=== PATIENT | male | born 1960 | race Caucasian/White ===

== ENCOUNTER → 2017-06-05 07:27 | Outpatient (CLI) | payer SELFPAY ==
--- NOTE | 2017-06-05 07:56 | CT_ITS ---
STUDY: CT ABDOMEN AND PELVIS WITH CONTRAST REASON FOR EXAM: Male, 57 years old. Follow-up for colon cancer. RADIATION DOSAGE (If Supplied By Facility): CTDIvol = ( 20.01 ) mGy, DLP = ( 1285.75 ) mGycm TECHNIQUE: Transaxial images were obtained from the dome of the diaphragm to the symphysis pubis with oral contrast. 100ML ml of Isovue 300 contrast was administered. Sagittal and coronal images were reconstructed. Individualized dose optimization techniques were used for this CT. COMPARISON: Comparison is made with prior study dated June 05, 2016. FINDINGS: Stable 4 mm noncalcified nodule in the peripheral lateral aspect of the right lower lobe. This is seen on axial image #2. The visualized portions of the heart are within normal limits. 1 cm cyst is seen in the left lobe liver. Stable 1.3 cm cyst adjacent to the gallbladder fossa. Stable solitary gallstone along the dependent portion of the gallbladder. Normal spleen. Normal pancreas. Normal bilateral adrenal glands. Normal right kidney. Normal left kidney. Normal visualized stomach. Normal small intestine. Normal colon. The appendix is visualized and appears normal. There is scattered atherosclerotic calcification of the abdominal aorta, without a demonstrated aneurysm. Normal inferior vena cava. Normal retroperitoneum. Normal urinary bladder. There is a small umbilical hernia containing fat. Small bilateral inguinal hernias containing fat. There are mild degenerative changes of the visualized lumbar spine. CT/Abdomen/Pelvis WITH Contrast IMPRESSION: Stable examination. Electronically Signed: Severino Dia MD at 15:30 EDT Tel [phone], Service support ,
[2017-06-05 08:22] LABS: Absolute Neutrophil Count 2.7 X10^3/uL (2.0-7.7); Basophil# 0.03 X10^3/uL; Basophil% 0.7 % (0-1); Eosinophil# 0.12 X10^3/uL; Eosinophils% 2.7 % (0-5); Hematocrit 41.4 % (40-54); Hemoglobin 14.3 g/dl (13.0-16.5); Mean Corp Hgb Conc 34.5 g/gl (32-36); Mean Corpuscular Hgb 33.4 pg (27.0-32.0); Mean Corpuscular Volume 96.7 fL (80-94); Mean Platelet Vol. 9.5 fl (6.2-12.0); Monocyte# 0.43 X10^3/uL; Monocyte% 9.8 % (0-10); Neutrophil # 2.71 X10^3/uL (2.7-7.7); Neutrophil % 61.6 % (47-70); Platelet Count 262 K/mm3 (150-450); RBC Distribution Width CV 12.1 % (11.6-14.6); RBC Distribution Width SD 41.9 fl (35.1-43.9); Red Blood Count 4.28 M/mm3 (4.6-6.2); White Blood Count 4.4 K/mm3 (4.4-11.0)
[2017-06-05 08:26] LABS: POSITIVE COUNT NO; POSITIVE DIFFERENTIAL NO; POSITIVE MORPHOLOGY NO
[2017-06-05 08:35] LABS: ALB/GLOB Ratio 1.1 RATIO (0.9-2.4); AST(SGOT) 12 U/L (15-37); Alanine Aminotransfer ALT/SGPT 26 U/L (16-61); Albumin, Serum 3.7 g/dL (3.2-5.0); Alkaline Phosphatase 48 U/L (45-117); Anion Gap 6 (5-15); BUN 16 mg/dL (7-18); BUN/Creat Ratio 17.4 RATIO (10-20); Calcium,Total 8.4 mg/dL (8.5-10.1); Chloride 104 mmol/L (98-107); Cholesterol 191 mg/dL (200); Creatinine, Serum 0.92 mg/dL (0.70-1.30); EST Glomerular Filtration Rate 90 mL/min (>60); Est Glom Filt Rate - Afr Amer 108 mL/min (>60); Globulin 3.5 g/dL (2.2-4.2); Glucose 97 mg/dL (74-106); High Density Lipoprotein 50 mg/dL; Potassium 4.5 mmol/L (3.5-5.1); Protein, Total 7.2 g/dL (6.4-8.2); Sodium Level 140 mmol/L (136-145); Triglycerides 116 mg/dL; Very Low Density Lipoprotein 23 mg/dL (5-40)
[2017-06-05 15:39] LABS: Xtra Tube EP Lab EXTRA TUBE
[2017-06-06 12:47] LABS: Carcinoembryonic Antigen 1.5 ng/mL (0.0-4.7)
== END ==
PROVIDERS: Family Provider Family Medicine; PCP Family Medicine; Visit Provider Internal Medicine Medical Oncology
DX: C18.9 Malignant neoplasm of colon, unspecified (principal); I10 Essential (primary) hypertension
CPT/HCPCS: 36415; 74177; 80053; 80061; 82378; 85025; Q9967

== ENCOUNTER → 2018-02-18 08:58 | Outpatient (CLI) | payer OTHER, SELFPAY ==
[2018-02-18 12:07] LABS: Absolute Lymphocyte Count 1.24 X10^3/ul (0.83-4.51); Absolute Neutrophil Count 3.1 X10^3/uL (2.0-7.7); Basophil# 0.01 X10^3/uL; Basophil% 0.2 % (0-1); Eosinophil# 0.13 X10^3/uL; Eosinophils% 2.7 % (0-5); Hematocrit 41.1 % (40-54); Hemoglobin 14.1 g/dl (13.0-16.5); Lymphocyte # 1.24 X10^3/ul (4.0); Lymphocyte % 25.4 % (19-41); Mean Corp Hgb Conc 34.3 g/gl (32-36); Mean Corpuscular Hgb 33.2 pg (27.0-32.0); Mean Corpuscular Volume 96.7 fL (80-94); Mean Platelet Vol. 10.1 fl (6.2-12.0); Monocyte# 0.42 X10^3/uL; Monocyte% 8.6 % (0-10); Neutrophil # 3.07 X10^3/uL (2.7-7.7); Neutrophil % 62.9 % (47-70); Platelet Count 243 K/mm3 (150-450); RBC Distribution Width CV 12.3 % (11.6-14.6); RBC Distribution Width SD 42.6 fl (35.1-43.9); Red Blood Count 4.25 M/mm3 (4.6-6.2); White Blood Count 4.9 K/mm3 (4.4-11.0)
[2018-02-18 12:08] LABS: POSITIVE COUNT NO; POSITIVE DIFFERENTIAL NO; POSITIVE MORPHOLOGY NO
[2018-02-18 13:02] LABS: ALB/GLOB Ratio 1.2 RATIO (0.9-2.4); AST(SGOT) 20 U/L (15-37); Alanine Aminotransfer ALT/SGPT 30 U/L (16-61); Albumin, Serum 3.8 g/dL (3.2-5.0); Alkaline Phosphatase 45 U/L (45-117); Anion Gap 9 (5-15); BUN 21 mg/dL (7-18); BUN/Creat Ratio 22.4 RATIO (10-20); Calcium,Total 8.9 mg/dL (8.5-10.1); Chloride 105 mmol/L (98-107); Cholesterol 186 mg/dL (200); Creatinine, Serum 0.94 mg/dL (0.70-1.30); EST Glomerular Filtration Rate 87 mL/min (>60); Est Glom Filt Rate - Afr Amer 106 mL/min (>60); Globulin 3.3 g/dL (2.2-4.2); Glucose 88 mg/dL (74-106); High Density Lipoprotein 50 mg/dL; Potassium 4.2 mmol/L (3.5-5.1); Protein, Total 7.1 g/dL (6.4-8.2); Sodium Level 139 mmol/L (136-145); Triglycerides 73 mg/dL; Very Low Density Lipoprotein 15 mg/dL (5-40)
[2018-02-19 11:57] LABS: Carcinoembryonic Antigen 1.4 ng/mL (0.0-4.7)
== END ==
PROVIDERS: Family Provider Family Medicine; PCP Family Medicine; Visit Provider Family Medicine
DX: Z00.00 Encounter for general adult medical examination without abnormal findings (principal); I10 Essential (primary) hypertension; Z85.038 Personal history of other malignant neoplasm of large intestine
CPT/HCPCS: 36415; 80053; 80061; 82378; 85025

== ENCOUNTER → 2018-04-11 13:41 | Outpatient (CLI) | payer OTHER, SELFPAY ==
[2018-04-11 16:09] LABS: ALB/GLOB Ratio 1.1 RATIO (0.9-2.4); AST(SGOT) 13 U/L (15-37); Alanine Aminotransfer ALT/SGPT 29 U/L (16-61); Albumin, Serum 3.8 g/dL (3.2-5.0); Alkaline Phosphatase 47 U/L (45-117); Anion Gap 10 (5-15); BUN 14 mg/dL (7-18); BUN/Creat Ratio 15.9 RATIO (10-20); Calcium,Total 8.9 mg/dL (8.5-10.1); Chloride 108 mmol/L (98-107); Creatinine, Serum 0.88 mg/dL (0.70-1.30); EST Glomerular Filtration Rate 94 mL/min (>60); Est Glom Filt Rate - Afr Amer 113 mL/min (>60); Globulin 3.4 g/dL (2.2-4.2); Glucose 90 mg/dL (74-106); Potassium 3.7 mmol/L (3.5-5.1); Protein, Total 7.2 g/dL (6.4-8.2); Sodium Level 142 mmol/L (136-145); Thyroid Stim Hormone (TSH) 0.74 uIU/mL (0.358-3.74)
[2018-04-11 16:12] LABS: Absolute Lymphocyte Count 1.28 X10^3/ul (0.83-4.51); Absolute Neutrophil Count 3.6 X10^3/uL (2.0-7.7); Basophil# 0.01 X10^3/uL; Basophil% 0.2 % (0-1); Eosinophils% 1.8 % (0-5); Hematocrit 41.5 % (40-54); Hemoglobin 14.3 g/dl (13.0-16.5); Lymphocyte # 1.28 X10^3/ul (4.0); Lymphocyte % 23.1 % (19-41); Mean Corp Hgb Conc 34.5 g/gl (32-36); Mean Corpuscular Hgb 33.6 pg (27.0-32.0); Mean Corpuscular Volume 97.4 fL (80-94); Mean Platelet Vol. 10.1 fl (6.2-12.0); Monocyte# 0.51 X10^3/uL; Monocyte% 9.2 % (0-10); Neutrophil # 3.64 X10^3/uL (2.7-7.7); Neutrophil % 65.5 % (47-70); Platelet Count 295 K/mm3 (150-450); RBC Distribution Width CV 12.4 % (11.6-14.6); RBC Distribution Width SD 43.4 fl (35.1-43.9); Red Blood Count 4.26 M/mm3 (4.6-6.2); White Blood Count 5.6 K/mm3 (4.4-11.0)
[2018-04-11 16:13] LABS: POSITIVE COUNT NO; POSITIVE DIFFERENTIAL NO; POSITIVE MORPHOLOGY NO
== END ==
PROVIDERS: Family Provider Family Medicine; PCP Family Medicine; Visit Provider Family Medicine
DX: R53.83 Other fatigue (principal); I95.9 Hypotension, unspecified; R51 Headache
CPT/HCPCS: 36415; 80053; 82533; 84443; 85025

== ENCOUNTER → 2018-04-18 16:10 | Outpatient (CLI) | payer OTHER, SELFPAY ==
--- NOTE | 2018-04-18 10:25 | COLBX_PTH ---
PATIENT: BETTY MOONEY LOC: [facility] U#:[id number] AGE/SX: 64/M ROOM: RE04/18/[address]: Dr. Zach Yañez MD : 1960 BED: DIS: SPEC #: [id number] RECD: 04/18/18 15:59 STATUS: LAURA SHALONDA #: [id number] XIN: 04/18/18 10:[address]: Zach Yañez DEPT: SURGICAL PATHOLOGY RECD BY: Abdifatah English ENTERED: 04/21/18 09:40 SP TYPE: COLON BX OTHR DR: Dr. Joss Tristan, [facility] Tissues: Sigmoid colon biopsy Procedures: Surgery Specimen Level IV HEADER OPERATION: Colonoscopy with polyp PRE-OP DIAGNOSIS: History of colon cancer TISSUE SUBMITTED: Sigmoid polyp, rule out adenoma, at 35 cm MICROSCOPIC DIAGNOSIS Sigmoid colon polyp at 35 cm, biopsy: Fragments of tubular adenoma. AM:montrell 04/22/18 MICROSCOPIC DESCRIPTION Slides are reviewed. GROSS DESCRIPTION Received in fixative is one container labeled with the patient's name and designated sigmoid polyp. The specimen consists of multiple irregular fragments of light reyes soft tissue that in aggregate measure 2 x 0.7 x 0.1 cm. The specimen is totally submitted in one cassette. / AM:montrell 04/21/18 TC:5 CPT: 08449
== END ==
PROVIDERS: Family Provider Family Medicine; PCP Family Medicine; Referring Provider Internal Medicine Gastroenterology; Visit Provider Internal Medicine Gastroenterology
DX: Z85.038 Personal history of other malignant neoplasm of large intestine (principal)
CPT/HCPCS: 88305

== ENCOUNTER → 2018-06-06 06:11 | Outpatient (CLI) | payer OTHER, SELFPAY ==
--- NOTE | 2018-06-06 06:17 | CT_ITS ---
STUDY: CT ABDOMEN AND PELVIS WITH CONTRAST REASON FOR EXAM: Male, 58 years old. COLON CA-5 YEAR FOLLOW UP TUMOR REMOVED FROM RECTUM. RADIATION DOSAGE (If Supplied By Facility): CTDIvol = ( 13.1 ) mGy, DLP = ( 1088.27 ) mGycm TECHNIQUE: Transaxial images were obtained from the dome of the diaphragm to the symphysis pubis without oral contrast. Isovue 300 100CC IV/Oral was administered. Sagittal and coronal images were reconstructed. Individualized dose optimization techniques were used for this CT. COMPARISON: 06/05/2017 FINDINGS: The visualized lung bases are unremarkable. The visualized portions of the heart are within normal limits. Hypoattenuation lesions are seen in the liver largest measures 1.5 cm are consistent with benign cysts. There is a solitary gallstone. Normal spleen. Normal pancreas. Normal bilateral adrenal glands. There is a cyst in the lower pole of the right kidney measures 1 cm. Normal left kidney. Normal visualized stomach. Normal small intestine. There are multiple colonic diverticula consistent with diverticulosis. The appendix is visualized and appears normal. Normal abdominal aorta. Normal inferior vena cava. Normal retroperitoneum. Normal urinary bladder. Normal abdominal wall. There are diffuse degenerative changes of the visualized lumbar spine. CT/Abdomen/Pelvis WITH Contrast IMPRESSION: Cholelithiasis. There is no evidence of metastatic lesions in the abdomen or the pelvis. Electronically Signed: Alyssia Alfonso, at 12:11 EDT Tel , Service support ,
[2018-06-06 06:30] LABS: Absolute Neutrophil Count 1.7 X10^3/uL (2.0-7.7); Basophil# 0.03 X10^3/uL; Basophil% 0.8 % (0-1); Eosinophil# 0.23 X10^3/uL; Eosinophils% 5.9 % (0-5); Hematocrit 42.4 % (40-54); Hemoglobin 14.7 g/dl (13.0-16.5); Lymphocyte % 40.7 % (19-41); Mean Corp Hgb Conc 34.7 g/gl (32-36); Mean Corpuscular Hgb 33.5 pg (27.0-32.0); Mean Corpuscular Volume 96.6 fL (80-94); Mean Platelet Vol. 9.2 fl (6.2-12.0); Monocyte# 0.37 X10^3/uL; Monocyte% 9.4 % (0-10); Neutrophil % 43.2 % (47-70); POSITIVE COUNT NO; POSITIVE DIFFERENTIAL NO; POSITIVE MORPHOLOGY NO; Platelet Count 245 K/mm3 (150-450); RBC Distribution Width CV 12.4 % (11.6-14.6); RBC Distribution Width SD 43.8 fl (35.1-43.9); Red Blood Count 4.39 M/mm3 (4.6-6.2); White Blood Count 3.9 K/mm3 (4.4-11.0)
[2018-06-06 06:45] LABS: ALB/GLOB Ratio 1.1 RATIO (0.9-2.4); AST(SGOT) 17 U/L (15-37); Alanine Aminotransfer ALT/SGPT 25 U/L (16-61); Albumin, Serum 3.8 g/dL (3.2-5.0); Alkaline Phosphatase 54 U/L (45-117); Anion Gap 6 (5-15); BUN 15 mg/dL (7-18); BUN/Creat Ratio 15.1 RATIO (10-20); Calcium,Total 8.7 mg/dL (8.5-10.1); Chloride 105 mmol/L (98-107); Creatinine, Serum 0.99 mg/dL (0.70-1.30); EST Glomerular Filtration Rate 82 mL/min (>60); Est Glom Filt Rate - Afr Amer 99 mL/min (>60); Globulin 3.6 g/dL (2.2-4.2); Glucose 104 mg/dL (74-106); Potassium 4.6 mmol/L (3.5-5.1); Protein, Total 7.4 g/dL (6.4-8.2); Sodium Level 139 mmol/L (136-145)
[2018-06-07 17:14] LABS: Carcinoembryonic Antigen 1.4 ng/mL (0.0-4.7)
== END ==
PROVIDERS: Family Provider Family Medicine; PCP Family Medicine; Referring Provider Internal Medicine Medical Oncology; Visit Provider Internal Medicine Medical Oncology
DX: C18.9 Malignant neoplasm of colon, unspecified (principal)
CPT/HCPCS: 36415; 74177; 80053; 82378; 85025; Q9967

== ENCOUNTER → 2019-01-22 06:25 | Outpatient (CLI) | payer OTHER, SELFPAY ==
[2018-06-10 15:11] VITALS: BMI 35.9
--- NOTE | 2019-01-22 06:46 | MRI_ITS ---
STUDY: MRI LEFT KNEE REASON FOR EXAM: Medial knee pain, injury one month ago. TECHNIQUE: Standardized fat and water weighted pulse sequences were obtained in all 3 orthogonal planes. COMPARISON: None. FINDINGS: There is a horizontal flap tear of the inferior articular surface of the posterior horn of the medial meniscus (proton density sagittal images 10-12) with a small displaced fragment in the posterior aspect of the medial gutter (T2 coronal images 16-18). Normal hyaline cartilage of the medial femorotibial compartment. Normal medial femoral condyle and tibial plateau. There is a mild sprain of the superficial fibers of the medial collateral ligament (T2 coronal image 20). Normal distal semimembranosus, gracilis and semitendinosus tendons. Normal lateral meniscus. Normal hyaline cartilage of the lateral femorotibial compartment. Normal lateral femoral condyle and tibial plateau. Normal proximal tibiofibular articulation. Normal lateral collateral (fibular) ligament. Normal popliteus tendon. Normal biceps femoris tendon. Normal anterior cruciate ligament (ACL). Normal posterior cruciate ligament (PCL). Normal congruent patellofemoral articulation. Normal hyaline cartilage of the patellofemoral compartment. Normal medial and lateral patellar retinaculum. Normal visualized quadriceps tendon. Normal patellar tendon. Normal Hoffa's fat pad. There is a moderate sized joint effusion. There is a thin medial patellar plica. The soft tissues are unremarkable. The otherwise visualized osseous structures are unremarkable. MRI/Lower Ext Joint Only (Routine) IMPRESSION: Medial meniscal tear. Mild sprain of the medial collateral ligament. Joint effusion. Electronically Signed: Sky Garza MD at 8:34 EST Tel , Service support ,
== END ==
PROVIDERS: Family Provider Family Medicine; PCP Family Medicine
DX: S83.242A Other tear of medial meniscus, current injury, left knee, initial encounter (principal); X58.XXXA Exposure to other specified factors, initial encounter
CPT/HCPCS: 73721

== ENCOUNTER → 2019-06-03 06:45 | Outpatient (CLI) | payer SELFPAY ==
[2018-06-10 15:11] VITALS: BMI 35.9
--- NOTE | 2019-06-03 07:00 | CT_ITS ---
STUDY: CT ABDOMEN AND PELVIS WITH CONTRAST REASON FOR EXAM: Male, 59 years old. PT STATED F/U SURVEILLANCE OF COLON CA RADIATION DOSAGE (If Supplied By Facility): CTDIvol = ( 21.51 ) mGy, DLP = ( 1494.30 ) mGycm TECHNIQUE: Transaxial images were obtained from the dome of the diaphragm to the symphysis pubis with oral contrast. Oral and amp; IV Readi-CAT and amp; 100mL Isovue-300 was administered. Sagittal and coronal images were reconstructed. Individualized dose optimization techniques were used for this CT. COMPARISON: Comparison is made with prior study dated June 06, 2018. FINDINGS: Stable mild degree of increasing markings in the lingular segment of the left upper lobe suggestive of a mild degree of scarring. The visualized portions of the heart are within normal limits. There is decreased attenuation of the liver consistent with steatosis. Stable 1 cm cyst in the left lobe of the liver. Solitary tiny gallstone along the dependent portion of the gallbladder lumen. This is unchanged. Normal spleen. Normal pancreas. Normal bilateral adrenal glands. Normal right kidney. Normal left kidney. Normal visualized stomach. Normal small intestine. Normal colon. The appendix is visualized and appears normal. There is scattered atherosclerotic calcification of the abdominal aorta, without a demonstrated aneurysm. Normal inferior vena cava. Normal retroperitoneum. Normal urinary bladder. Small bilateral inguinal lymph nodes which appear to be benign. There is evidence of prior bilateral vasectomies. There is a small umbilical hernia containing fat. Small bilateral inguinal hernias containing fat. There are mild degenerative changes of the visualized lumbar spine. CT/Abdomen/Pelvis WITH Contrast IMPRESSION: Tiny position of the liver. Stable cyst in the left lobe. There is no evidence of metastatic disease. Stable examination. Electronically Signed: Severino Dia, at 9:25 EDT , Service support ,
[2019-06-03 07:09] LABS: Absolute Lymphocyte Count 1.44 X10^3/uL (0.83-4.51); Absolute Neutrophil Count 2.7 X10^3/uL (2.0-7.7); Basophil# 0.04 X10^3/uL; Basophil% 0.8 % (0-1); Eosinophil# 0.23 X10^3/uL; Eosinophils% 4.7 % (0-5); Hemoglobin 14.3 g/dL (13.0-16.5); Lymphocyte # 1.44 X10^3/ul (4.0); Lymphocyte % 29.6 % (19-41); Mean Corp Hgb Conc 34.9 g/dL (32-36); Mean Corpuscular Volume 94.7 fL (80-94); Mean Platelet Vol. 9.3 fl (6.2-12.0); Monocyte# 0.44 X10^3/uL; Monocyte% 9.1 % (0-10); NRBC Flagged by Analyzer 0 % (0-5); Neutrophil % 55.6 % (47-70); Platelet Count 236 K/mm3 (150-450); RBC Distribution Width CV 11.8 % (11.6-14.6); RBC Distribution Width SD 40.9 fl (35.1-43.9); Red Blood Count 4.33 M/mm3 (4.6-6.2); White Blood Count 4.9 K/mm3 (4.4-11.0)
[2019-06-03 07:38] LABS: ALB/GLOB Ratio 1.2 RATIO (0.9-2.4); AST(SGOT) 17 U/L (15-37); Alanine Aminotransfer ALT/SGPT 27 U/L (16-61); Albumin, Serum 3.8 g/dL (3.2-5.0); Alkaline Phosphatase 45 U/L (45-117); Anion Gap 5 (5-15); BUN 17 mg/dL (7-18); BUN/Creat Ratio 17.2 RATIO (10-20); Calcium,Total 8.7 mg/dL (8.5-10.1); Chloride 106 mmol/L (98-107); Creatinine, Serum 0.99 mg/dL (0.70-1.30); EST Glomerular Filtration Rate 82 mL/min (>60); Est Glom Filt Rate - Afr Amer 99 mL/min (>60); Globulin 3.3 g/dL (2.2-4.2); Glucose 96 mg/dL (74-106); PSA,Total - Annual Screen 0.22 ng/mL (0.00-4.00); Potassium 4.1 mmol/L (3.5-5.1); Protein, Total 7.1 g/dL (6.4-8.2); Sodium Level 138 mmol/L (136-145)
[2019-06-03 14:52] LABS: Xtra Tube EP Lab EXTRA TUBE
[2019-06-04 11:30] LABS: Carcinoembryonic Antigen 1.3 ng/mL (0.0-4.7)
== END ==
PROVIDERS: Family Provider Family Medicine; PCP Family Medicine; Referring Provider Internal Medicine Medical Oncology; Visit Provider Internal Medicine Medical Oncology
DX: I10 Essential (primary) hypertension (principal); Z85.038 Personal history of other malignant neoplasm of large intestine; Z12.5 Encounter for screening for malignant neoplasm of prostate
CPT/HCPCS: 36415; 74177; 80053; 82378; 84153; 85025; Q9967; G0103

== ENCOUNTER → 2020-07-20 07:21 | Outpatient (CLI) | payer OTHER, SELFPAY ==
[2019-08-04 14:50] VITALS: BMI 35.7
[2020-07-20 07:55] LABS: Absolute Lymphocyte Count 1.23 X10^3/uL (0.83-4.51); Absolute Neutrophil Count 3.4 X10^3/uL (2.0-7.7); Basophil# 0.04 X10^3/uL; Basophil% 0.7 % (0-1); Eosinophil# 0.35 X10^3/uL; Eosinophils% 6.3 % (0-5); Hemoglobin 14.7 g/dL (13.0-16.5); Lymphocyte # 1.23 X10^3/ul (0.83-4.51); Mean Corp Hgb Conc 34.2 g/dL (32-36); Mean Corpuscular Hgb 33.2 pg (27.0-32.0); Mean Corpuscular Volume 97.1 fL (80-94); Mean Platelet Vol. 9.4 fl (6.2-12.0); Monocyte# 0.52 X10^3/uL; Monocyte% 9.3 % (0-10); NRBC Flagged by Analyzer 0 % (0-5); Neutrophil # 3.43 X10^3/uL (2.7-7.7); Neutrophil % 61.5 % (47-70); Platelet Count 281 K/mm3 (150-450); RBC Distribution Width CV 11.8 % (11.6-14.6); RBC Distribution Width SD 42.5 fl (35.1-43.9); Red Blood Count 4.43 M/mm3 (4.6-6.2); White Blood Count 5.6 K/mm3 (4.4-11.0)
[2020-07-20 08:22] LABS: AST(SGOT) 16 U/L (15-37); Alanine Aminotransfer ALT/SGPT 30 U/L (16-61); Albumin, Serum 3.7 g/dL (3.2-5.0); Alkaline Phosphatase 53 U/L (45-117); Anion Gap 5 (5-15); BUN 19 mg/dL (7-18); BUN/Creat Ratio 19.2 RATIO (10-20); Calcium,Total 8.9 mg/dL (8.5-10.1); Chloride 105 mmol/L (98-107); Cholesterol 232 mg/dL (200); Creatinine, Serum 0.99 mg/dL (0.70-1.30); EST Glomerular Filtration Rate 82 mL/min (>60); Est Glom Filt Rate - Afr Amer 99 mL/min (>60); Globulin 3.6 g/dL (2.2-4.2); Glucose 108 mg/dL (74-106); High Density Lipoprotein 53 mg/dL; LDH 172 U/L (87-241); Potassium 4.4 mmol/L (3.5-5.1); Protein, Total 7.3 g/dL (6.4-8.2); Sodium Level 139 mmol/L (136-145); Triglycerides 139 mg/dL; Very Low Density Lipoprotein 28 mg/dL (5-40)
[2020-07-21 09:25] LABS: Carcinoembryonic Antigen 1.4 ng/mL (0.0-4.7)
== END ==
PROVIDERS: Internal Medicine Medical Oncology; PCP Family Medicine; Referring Provider Family Medicine; Visit Provider Family Medicine
DX: Z00.00 Encounter for general adult medical examination without abnormal findings (principal); Z85.038 Personal history of other malignant neoplasm of large intestine
CPT/HCPCS: 36415; 80053; 80061; 82378; 83615; 85025

== ENCOUNTER → 2021-07-26 | Outpatient (CLI) | payer OTHER, SELFPAY ==
[2021-07-26 07:32] LABS: Absolute Lymphocyte Count 1.32 X10^3/uL (0.83-4.51); Basophil# 0.03 X10^3/uL; Basophil% 0.6 % (0-1); Eosinophil# 0.22 X10^3/uL; Eosinophils% 4.4 % (0-5); Hematocrit 39.7 % (40-54); Hemoglobin 13.7 g/dL (13.0-16.5); Lymphocyte # 1.32 X10^3/ul (0.83-4.51); Lymphocyte % 26.2 % (19-41); Mean Corp Hgb Conc 34.5 g/dL (32-36); Mean Corpuscular Hgb 33.5 pg (27.0-32.0); Mean Corpuscular Volume 97.1 fL (80-94); Mean Platelet Vol. 9.7 fl (6.2-12.0); Monocyte# 0.46 X10^3/uL; Monocyte% 9.1 % (0-10); NRBC Flagged by Analyzer 0 % (0-5); Neutrophil # 2.99 X10^3/uL (2.7-7.7); Neutrophil % 59.5 % (47-70); Platelet Count 261 K/mm3 (150-450); RBC Distribution Width CV 12.1 % (11.6-14.6); RBC Distribution Width SD 43.3 fl (35.1-43.9); Red Blood Count 4.09 M/mm3 (4.6-6.2)
[2021-07-26 08:05] LABS: ALB/GLOB Ratio 1.1 RATIO (0.9-2.4); AST(SGOT) 15 U/L (15-37); Alanine Aminotransfer ALT/SGPT 23 U/L (16-61); Albumin, Serum 3.7 g/dL (3.2-5.0); Alkaline Phosphatase 46 U/L (45-117); Anion Gap 4 (5-15); BUN 18 mg/dL (7-18); BUN/Creat Ratio 19.1 RATIO (10-20); Calcium,Total 8.9 mg/dL (8.5-10.1); Chloride 105 mmol/L (98-107); Cholesterol 190 mg/dL (200); Creatinine, Serum 0.94 mg/dL (0.70-1.30); EST Glomerular Filtration Rate 86 mL/min (>60); Est Glom Filt Rate - Afr Amer 104 mL/min (>60); Globulin 3.5 g/dL (2.2-4.2); Glucose 104 mg/dL (74-106); High Density Lipoprotein 43 mg/dL; LDH 178 U/L (87-241); PSA,Total - Annual Screen 0.16 ng/mL (0.00-4.00); Potassium 4.3 mmol/L (3.5-5.1); Protein, Total 7.2 g/dL (6.4-8.2); Sodium Level 139 mmol/L (136-145); Triglycerides 114 mg/dL; Very Low Density Lipoprotein 23 mg/dL (5-40)
[2021-07-26 15:15] LABS: Xtra Tube EP Lab EXTRA TUBE
== END | disposition home or self-care (01) ==
LOC: LAB 07:10
PROVIDERS: Internal Medicine Medical Oncology; PCP Family Medicine; Referring Provider Family Medicine; Visit Provider Family Medicine
DX: Z00.00 Encounter for general adult medical examination without abnormal findings (principal); Z12.5 Encounter for screening for malignant neoplasm of prostate
CPT/HCPCS: 36415; 80053; 80061; 83615; 84153; 85025; G0103

== ENCOUNTER → 2022-08-23 | Outpatient (CLI) | payer OTHER, SELFPAY ==
[2022-08-23 18:11] LABS: Vitamin B12 370 pg/mL (211-911)
[2022-08-23 18:16] LABS: T4 Free Direct 0.82 ng/dL (0.76-1.46)
== END | disposition home or self-care (01) ==
LOC: BFHLAB 14:38
PROVIDERS: PCP Family Medicine; Referring Provider Family Medicine; Visit Provider Family Medicine
DX: R53.83 Other fatigue (principal)
CPT/HCPCS: 36415; 82607; 84439; 84443

== ENCOUNTER → 2023-07-24 | Outpatient (CLI) | payer OTHER, SELFPAY ==
[2023-07-24 09:44] LABS: Absolute Lymphocyte Count 1.25 X10^3/uL (0.83-4.51); Absolute Neutrophil Count 3.1 X10^3/uL (2.0-7.7); Basophil# 0.04 X10^3/uL; Basophil% 0.8 % (0-1); Eosinophil# 0.18 X10^3/uL; Eosinophils% 3.6 % (0-5); Hematocrit 41.9 % (40-54); Hemoglobin 14.3 g/dL (13.0-16.5); Lymphocyte # 1.25 X10^3/ul (0.83-4.51); Lymphocyte % 25.2 % (19-41); Mean Corp Hgb Conc 34.1 g/dL (32-36); Mean Corpuscular Hgb 32.8 pg (27.0-32.0); Mean Corpuscular Volume 96.1 fL (80-94); Mean Platelet Vol. 10.2 fl (6.2-12.0); Monocyte# 0.42 X10^3/uL; Monocyte% 8.5 % (0-10); NRBC Flagged by Analyzer 0 % (0-5); Neutrophil # 3.05 X10^3/uL (2.7-7.7); Neutrophil % 61.5 % (47-70); Platelet Count 264 K/mm3 (150-450); RBC Distribution Width CV 12.1 % (11.6-14.6); RBC Distribution Width SD 42.5 fl (35.1-43.9); Red Blood Count 4.36 M/mm3 (4.6-6.2)
[2023-07-24 10:18] LABS: ALB/GLOB Ratio 1.1 RATIO (0.9-2.4); AST(SGOT) 18 U/L (15-37); Alanine Aminotransfer ALT/SGPT 30 U/L (16-61); Albumin, Serum 3.9 g/dL (3.2-5.0); Alkaline Phosphatase 44 U/L (45-117); Anion Gap 5 (5-15); BUN 22 mg/dL (7-18); BUN/Creat Ratio 24.8 RATIO (10-20); Calcium,Total 9.4 mg/dL (8.5-10.1); Chloride 106 mmol/L (98-107); Cholesterol 207 mg/dL (200); Creatinine, Serum 0.89 mg/dL (0.70-1.30); EST Glomerular Filtration Rate 92 mL/min (>60); Est Glom Filt Rate - Afr Amer 111 mL/min (>60); Globulin 3.7 g/dL (2.2-4.2); Glucose 101 mg/dL (74-106); High Density Lipoprotein 48 mg/dL; LDH 179 U/L (87-241); PSA,Total - Annual Screen 0.23 ng/mL (0.00-4.00); Potassium 4.4 mmol/L (3.5-5.1); Protein, Total 7.6 g/dL (6.4-8.2); Sodium Level 137 mmol/L (136-145); Triglycerides 95 mg/dL; Very Low Density Lipoprotein 19 mg/dL (5-40)
[2023-07-25 04:07] LABS: Carcinoembryonic Antigen 1.1 ng/mL (0.0-4.7)
== END | disposition home or self-care (01) ==
LOC: LAB 08:34
PROVIDERS: Internal Medicine Medical Oncology; PCP Family Medicine; Referring Provider Family Medicine; Visit Provider Family Medicine
DX: I10 Essential (primary) hypertension (principal); Z12.5 Encounter for screening for malignant neoplasm of prostate; Z85.038 Personal history of other malignant neoplasm of large intestine
CPT/HCPCS: 36415; 80053; 80061; 82378; 83615; 84153; 85025; G0103

== ENCOUNTER → 2024-07-22 | Outpatient (CLI) | payer OTHER, SELFPAY ==
[2024-07-22 09:35] LABS: Absolute Lymphocyte Count 1.28 X10^3/uL (0.83-4.51); Absolute Neutrophil Count 2.3 X10^3/uL (2.0-7.7); Basophil# 0.03 X10^3/uL; Basophil% 0.7 % (0-1); Eosinophil# 0.28 X10^3/uL; Eosinophils% 6.5 % (0-5); Hematocrit 39.5 % (40-54); Lymphocyte # 1.28 X10^3/ul (0.83-4.51); Lymphocyte % 29.7 % (19-41); Mean Corp Hgb Conc 35.4 g/dL (32-36); Mean Corpuscular Hgb 33.9 pg (27.0-32.0); Mean Corpuscular Volume 95.6 fL (80-94); Mean Platelet Vol. 10.2 fl (6.2-12.0); Monocyte# 0.41 X10^3/uL; Monocyte% 9.5 % (0-10); NRBC Flagged by Analyzer 0 % (0-5); Neutrophil # 2.31 X10^3/uL (2.7-7.7); Neutrophil % 53.6 % (47-70); Platelet Count 262 K/mm3 (150-450); RBC Distribution Width CV 12.1 % (11.6-14.6); Red Blood Count 4.13 M/mm3 (4.6-6.2); White Blood Count 4.3 K/mm3 (4.4-11.0)
[2024-07-22 10:31] LABS: Cholesterol 203 mg/dL (<=200); High Density Lipoprotein 44 mg/dL; Low Density Lipoprotein Calc. 139 mg/dL; PSA,Total - Annual Screen 0.23 ng/mL (0.02-4.00); Triglycerides 99 mg/dL; Very Low Density Lipoprotein 20 mg/dL (5-40); cholesterol:hdl ratio screen 4.63
[2024-07-22 10:32] LABS: ALB/GLOB Ratio 1.5 RATIO (0.9-2.4); AST(SGOT) 28 U/L (<=37); Alanine Aminotransfer ALT/SGPT 33 U/L (<=46); Albumin, Serum 4.3 g/dL (3.4-4.8); Alkaline Phosphatase 46 U/L (40-129); Anion Gap 11 (5-15); BUN 22 mg/dL (4-19); BUN/Creat Ratio 23.9 RATIO (10-20); Calcium,Total 9.6 mg/dL (7.6-11.0); Carbon Dioxide 23.4 mmol/L (21.0-32.0); Chloride 105 mmol/L (98-108); Creatinine, Serum 0.92 mg/dL (0.70-1.20); EST Glomerular Filtration Rate 92 (>60); Globulin 2.9 g/dL (2.2-4.2); Glucose 98 mg/dL (70-99); LDH 248 U/L (87-241); Potassium 4.5 mmol/L (3.3-5.1); Protein, Total 7.2 g/dL (5.9-8.4); Sodium Level 139 mmol/L (133-145); Total Bilirubin 0.53 mg/dL (0.00-1.30)
[2024-07-23 04:07] LABS: Carcinoembryonic Antigen 1.4 ng/mL (0.0-4.7)
== END | disposition home or self-care (01) ==
PROVIDERS: Internal Medicine Medical Oncology; PCP Family Medicine; Referring Provider Family Medicine; Visit Provider Family Medicine
DX: I11.0 Hypertensive heart disease with heart failure (principal); I50.9 Heart failure, unspecified; Z12.5 Encounter for screening for malignant neoplasm of prostate; Z85.038 Personal history of other malignant neoplasm of large intestine
CPT/HCPCS: 36415; 80053; 80061; 82378; 83615; 84153; 85025; G0103

== ENCOUNTER → 2024-10-01 | Outpatient (CLI) | payer OTHER, SELFPAY | END | disposition home or self-care (01) | LOC: SL 09:41 | PROVIDERS: PCP Family Medicine; Referring Provider Family Medicine; Visit Provider Family Medicine | DX: G47.10 Hypersomnia, unspecified (principal); R06.83 Snoring; I10 Essential (primary) hypertension | CPT/HCPCS: 95806 ==

== ENCOUNTER → 2024-10-21 | Outpatient (CLI) | payer OTHER, SELFPAY ==
--- OUTSIDE RECORDS SUMMARY | 2024-10-21 17:02 | XMS RPT_ITS | CCD ---
Author Organization [facility] Care Team Providers Care Medical Intern Name Role Phone Angel Damon MD Unavailable [phone] Tung Tristan DO Primary Care Provider Dr. Tung Tristan DO Attending Provider [phone] Dr. Tung Tristan DO Referring Provider [phone] Dr. Mayank Martinez MD Other Provider [phone] Mayank Martinez MD Attending Provider [phone] Tung Tristan Referring Unavailable Tung Tristan Attending Unavailable Mayank Martinez Consulting Unavailable Tung Tristan Primary Care Unavailable Tung Tristan Referring Unavailable Tung Tristan Attending Unavailable Tung Tristan Primary Care Unavailable Tung Tristan Primary Care Unavailable Tung Tristan Referring Unavailable Tung Tristan Attending Unavailable Tung Tristan Referring Unavailable Mayank Martinez Attending Unavailable Tung Tristan Primary Care Unavailable Allergies Allergy Classification Reported Allergen(s) Allergy Type Date of Onset Reaction(s) Facility (1 source) Penicillin Drug Allergy 0 Father has penicillin allergy, patient has never had penicillin. [facility] Work Phone: (4 sources) Penicillins Allergy to substance 3 Unknown [facility] (1 source) Penicillins Drug allergy (disorder) 5 [facility] Repository Medications Current Medications Medication Drug Class(es) Dates Sig (Normalized) Sig (Original) lisinopril 10 mg oral tablet (6 sources) Angiotensin Converting Enzyme Inhibitor Start: 11-06-2013 take 1 tablet by mouth twice daily Lisinopril 10 MG tablet Active 10 mg PO TWICE A DAY November 06, 2013 12:00am meloxicam 15 mg oral tablet (2 sources) Nonsteroidal Anti-inflammatory Drug Start: 07-29-2024 take 1 tablet by mouth once daily Meloxicam 15 mg tablet Active 15 mg PO daily July 29, 2024 12:00am Completed/Discontinued Medications Medication Drug Class(es) Dates Sig (Normalized) Sig (Original) ferrous sulfate 325 mg oral tablet (5 sources) Start: 11-06-2013 End: 11-08-2013 take 1 tablet by mouth once daily Ferrous Sulfate (Iron Supplement) 325 MG tablet Discontinued 325 mg PO DAILY November 06, 2013 12:00am November 08, 2013 11:39am MULTIPLE VITAMINS-MINERALS (1 source) Start: 04-06-2019 ONE DAILY MULTIVITAMIN ADULT TABS 1 tablet once daily MULTIPLE VITAMINS-MINERALS [id number] Denice Calderon Problems Active Problems Problem Classification Problem Date Documented Da te Episodic/Chronic Cancer of colon (8 sources) History of malignant neoplasm of colon; Translations: [Personal history of other malignant neoplasm of large intestine] Onset: 07-29-2024 08-01-2020 Episodic Comment on above: No evidence of disea se clinically.CEA is normal and stable. Deficiency and other anemia (5 sources) Iron deficiency anemia; Translations: [Iron deficiency anemia, unspecified] 06-10-2018 Episodic Essential hypertension (5 sources) Hypertensive disorder; Translations: [Essential (primary) hypertension] 06-10-2018 Chronic Hypertension with complications and secondary hypertension (1 source) Hypertensive heart disease with heart failure; Translations: [Hypertensive heart disease with heart failure] Onset: 07-27-2024 Chronic Joint disorders and dislocations; trauma-related (2 sources) Derangement of medial meniscus; Translations: [Unspecified internal derangement of left knee] Onset: 04-08-2019 04-08-2019 Chronic Joint disorders and dislocations; trauma-related (1 source) Chondromalacia of left patella; Translations: [Chondromalacia patellae, left knee] Onset: 04-08-2019 04-08-2019 Other gastrointestinal disorders (4 sources) Occult blood in stools; Translations: [Other fecal abnormalities] 08-01-2022 Episodic Other inflammatory condition of skin (1 source) Psoriasis; Translations: [Psoriasis, unspecified] Onset: 04-08-2019 04-08-2019 Chronic Other nutritional; endocrine; and metabolic disorders (5 sources) Obese class I; Translations: [Obesity, unspecified] 06-10-2018 Chronic Residual codes; unclassified (1 source) Hypersomnia, unspecified; Translations: [Hypersomnia, unspecified] Onset: 10-07-2024 Chronic Past or Other Problems Problem Classification Problem Date Documented Da te Episodic/Chronic Other non-traumatic joint disorders (1 source) Knee pain; Translations: [Pain in left knee] Onset: 04-08-2019 04-08-2019 Episodic Unclassified (1 source) Problem Results Test Name Value Interpretation Reference Range Facility Oncology Visit Reporton 07-16 Oncology Visit Report [facility] [address] [place] [address] OFFICE VISIT Date of Service: 07/29/24 1501 MR#: [id number] Acct: [id number] Name: BETTY MOONEY Rep #: [id number] : 1960 From: Mayank Martinez MD Age/Sex: 64/M Location: [facility] Status: Signed HPI Subjective Date of Service 07/29/24 Chief Complaint F/u for colon cancer. History of Present Illness 64 year-old man was diagnosed with colon cancer stage II( T3 N0 M0). 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 It invaded through the muscularis propria into the subserosal adipose tissue, lymph nodes 40 out of 40 with negative. He is currently on surveillance and comes in for follow-up, he feels well. [facility] Medical History Kidney stones DVT (deep venous thrombosis) Colon cancer Surgical History History of tonsillectomy History of colon resection Family History Father Hypertension Heart disease Anemia Mother Hypertension Anemia Social History Smoking Status: Never smoker ROS Constitutional Constitutional: Reports systems reviewed and no addt'l complaints, except as documented Eyes Eyes: Reports systems reviewed and no addt'l complaints, except as documented ENT HEENT: Reports systems reviewed and no addt'l complaints, except as documented Cardiovascular Cardiovascular: Reports systems reviewed and no addt'l complaints, except as documented Respiratory/Chest Respiratory/Chest: Reports systems reviewed and no addt'l complaints, except as documented Gastrointestinal Gastrointestinal: Reports systems reviewed and no addt'l complaints, except as documented Genitourinary Genitourinary: Reports systems reviewed and no addt'l complaints, except as documented Musculoskeletal Musculoskeletal: Reports systems reviewed and no addt'l complaints, except as documented Integumentary Integumentary: Reports systems reviewed and no addt'l complaints, except as documented Neurologic Neurologic: Reports systems reviewed and no addt'l complaints, except as documented Psychiatric Psychiatric: Reports systems reviewed and no addt'l complaints, except as documented Endocrine Endocrinology: Reports systems reviewed and no addt'l complaints, except as documented Hematologic/Lymphatic Hematologic/Lymphatic: Reports systems reviewed and no addt'l complaints, except as documented Allergic/Immunologic Allergic/Immunologic: Reports systems reviewed and no addt'l complaints, except as documented Intake Vital Signs 07/31/23 13:55 07/29/24 15:01 Height 5 ft 11 in 5 ft 11 in Weight: 120.202 kg BMI 36.9 BP 142/88 H Blood Pressure Location Lt brachial Position Sitting Respiration 18 Pulse 83 Pulse Source Monitor Temp 98.4 F Temperature Source Temporal Artery Pulse Oximetry (%) 96 Oxygen Delivery Method room air Intake Is patient in pain?: No Allergies Penicillins Allergy (Verified 07/29/24 15:07) Unknown Medications ???Medication ???Instructions ???Recorded ???Confirmed ???Type lisinopril 10 mg tablet 10 mg PO BID 11/06/13 07/31/23 His tory meloxicam 15 mg tablet 15 mg PO QDAY 07/29/24 07/29/24 Hi story Have you fallen in the past year?: No Central Venous Access Central Venous Access: No Laboratory Tests 02/18/18 06/06/18 06/06/18 09:14 06:18 06:18 WBC 3.9 L Hgb 14.7 Hct 42.4 Plt Count 245 Absolute Neuts (auto) 1.7 L Absolute Lymphs (auto) Sodium Potassium Chloride Carbon Dioxide BUN Creatinine Glucose Calcium Total Bilirubin AST ALT Alkaline Phosphatase Lactate Dehydrogenase Total Protein Albumin Globulin Carcinoembryonic Ag 1.4 1.4 1.4 PSA Screen 06/03/19 07/20/20 07/26/21 06:51 07:29 07:14 WBC 5.6 5.0 Hgb 14.7 13.7 Hct 39.7 L Plt Count 281 261 Absolute Neuts (auto) Absolute Lymphs (auto) Sodium 139 Potassium 4.3 Chloride 105 Carbon Dioxide 30.0 BUN 18 Creatinine 0.94 Glucose Calcium 8.9 Total Bilirubin 0.70 AST 15 ALT 23 Alkaline Phosphatase 46 Lactate Dehydrogenase 178 Total Protein 7.2 Albumin 3.7 Globulin 3.5 Carcinoembryonic Ag 1.3 1.4 PSA Screen 07/25/22 07/24/23 07/22/24 07:04 08:38 07:57 WBC 5.0 Hgb 14.3 Hct 41.9 Plt Count 264 Absolute Neuts (auto) 3.1 Absolute Lymphs (auto) 1.25 Sodium 137 Potassium 4.4 Chloride 106 Carbon Dioxide 26.0 BUN 22 H Cre (more content not included)... Normal [facility] Carcinoembryonic Antigenon 0 07-23-2024 CEA 1.4 ng/mL Normal 0.0-4.7 [facility] Comment on above: Result Comment: Nons mokers <3.9 Smokers <5.6 [facility] Electrochemiluminescence Immunoassay (ECLIA) Values obtained with different assay methods or kits cannot be used interchangeably. Results cannot be interpreted as absolute evidence of the presence or absence of malignant disease. Performed at: [address] [id number] Electrical Machinist: Zach Palomo PhD, Phone: [phone] Performed By: #### L 345.9681, L100010, L3100.2300, L504.9931 #### [facility] [address] [place], [address] Absolute lymphocyte countOrd ered By: Mayank Martinez on 07-22-2024 Lymphocytes Auto (Unsp spec) [#/Vol] 1.28 10*3/uL 0.83-4.51 [facility] Absolute neutrophil countOrd ered By: Mayank Martinez on 07-22-2024 Neutrophils (Bld) [#/Vol] 2.3 10*3/uL 2.0-7.7 [facility] Anion gap in Serum or Plasma Ordered By: Mayank Michelle on 07-22-2024 Anion gap [Moles/Vol] 11 mmol/L 5- [facility] Automated lymphocyte count a s percentage of total leukocytesOrdered By: Mayank Martinez on 07-22-2024 Lymphocytes/100 WBC Auto (Unsp spec) 29.7 % - [facility] BUN/creatinine ratioOrdered By: [facility] on 07-22-2024 Urea nitrogen/Creatinine [Mass ratio] 23.9 mg/mg High 10- [facility] Basophil [facility]Or[facility] B y: [facility] Basophils/100 WBC (Bld) 0.7 % 0-1 [facility] Bilirubin, totalOrdered By: [facility] 07-22-2024 Bilirubin [Mass/Vol] 0.53 mg/dL 0.00-1.30 [facility] CBC W/Diff, Automatedon Absolute Lymph 1.28 X10 3/uL Normal 0.83-4.51 [facility] Comment on above: Performed By: #### L 500.4050, L100.0100, L3100.2300, L504.2610 #### [facility] [address] [place], [address] Absolute Neut 2.3 X10 3/uL Normal 2.0-7.7 [facility] Comment on above: Performed By: #### L 500.4050, L100.0100, L3100.2300, L504.2610 #### [facility] [address] [place], [address] Basophils/100 WBC (Bld) 0.7 % Normal 0-1 [facility] Comment on above: Performed By: #### L 500.4050, L100.0100, L3100.2300, L504.2610 #### [facility] [address] [place], [address] Eosinophils/100 WBC (Bld) 6.5 % High 0-5 [facility] Comment on above: Performed By: #### L 500.4050, L100.0100, L3100.2300, L504.2610 #### [facility] [address] [place], [address] Erythrocyte distribution width (RBC) [Ratio] 12.1 % Normal 11.6-14.6 [facility] Comment on above: Performed By: #### L 500.4050, L100.0100, L3100.2300, L504.2610 #### [facility] [address] [place], [address] Hematocrit (Bld) [Volume fraction] 39.5 % Low 40-54 [facility] Comment on above: Performed By: #### L 500.4050, L100.0100, L3100.2300, L504.2610 #### [facility] [address] [place], [address] Hemoglobin (Bld) [Mass/Vol] 14.0 g/dL Normal 13.0-16.5 [facility] Comment on above: Performed By: #### L 500.4050, L100.0100, L3100.2300, L504.2610 #### [facility] [address] [place], [address] IG% 0.000 Normal 0.0-0.9 [facility] Comment on above: Result Comment: IG% - Immature Granulocytes (promyelocytes, myelocytes and metamyelocytes) > 1% indicates that a LEFT SHIFT is Present. Performed By: #### L 500.4050, L100.0100, L3100.2300, L504.2610 #### [facility] [address] [place], [address] Lymphocytes/100 WBC (Bld) 29.7 % Normal 19-41 [facility] Comment on above: Performed By: #### L 500.4050, L100.0100, L3100.2300, L504.2610 #### [facility] [address] [place], [address] MCH (RBC) [Entitic mass] 33.9 pg High 27.0-32.0 [facility] Comment on above: Performed By: #### L 500.4050, L100.0100, L3100.2300, L504.2610 #### [facility] [address] [place], [address] MCHC (RBC) [Mass/Vol] 35.4 g/dL Normal 32-[address] [facility] Comment on above: Performed By: #### L 500.4050, L100.0100, L3100.2300, L504.2610 #### [facility] [address] [place], [address] MCV (RBC) [Entitic vol] 95.6 fL High 80-94 [facility] Comment on above: Performed By: #### L 500.4050, L100.0100, L3100.2300, L504.2610 #### [facility] [address] [place], [address] Monocytes/100 WBC (Bld) 9.5 % Normal 0-10 [facility] Comment on above: Performed By: #### L 500.4050, L100.0100, L3100.2300, L504.2610 #### [facility] [address] [place], [address] Neutrophils/100 WBC (Bld) 53.6 % Normal 47-70 [facility] Comment on above: Performed By: #### L 500.4050, L100.0100, L3100.2300, L504.2610 #### [facility] [address] [place], [address] Nucleated RBC (Bld) [#/Vol] 0 10*3/uL Normal 0-5 [facility] Comment on above: Performed By: #### L 500.4050, L100.0100, L3100.2300, L504.2610 #### [facility] [address] [place], [address] Platelet mean volume (Bld) [Entitic vol] 10.2 fL Normal 6.2-12.0 [facility] Comment on above: Performed By: #### L 500.4050, L100.0100, L3100.2300, L504.2610 #### [facility] [address] [place], [address] Platelets (Bld) [#/Vol] 262 10*3/uL Normal 150-450 [facility] Comment on above: Performed By: #### L 500.4050, L100.0100, L3100.2300, L504.2610 #### [facility] [address] [place], [address] RBC (Bld) [#/Vol] 4.13 10*6/uL Low 4.6-6.2 [facility] Comment on above: Performed By: #### L 500.4050, L100.0100, L3100.2300, L504.2610 #### [facility] [address] [place], [address] RDW SD 42.0 fl Normal 35.1-43.9 [facility] Comment on above: Performed By: #### L 500.4050, L100.0100, L3100.2300, L504.2610 #### [facility] [address] [place], [address] WBC (Bld) [#/Vol] 4.3 10*3/uL Low 4.4-11.0 [facility] Comment on above: Performed By: #### L 500.4050, L100.0100, L3100.2300, L504.2610 #### [facility] [address] [place], [address] Calculated very low density lipoprotein (VLDL) cholesterol measurementOrdered By: Tung Tristan on 07-22-2024 Calculated very low density lipoprotein (VLDL) cholesterol measurement 20 mg/dL 5-40 [facility] Carbon dioxide, total [Moles /volume] in Central venous bloodOrdered By: Mayank Martinez on 07-22-2024 CO2 [Moles/Vol] 23.4 mmol/L 21.0-32.0 [facility] Chloride assayOrdered By: Holly Martinez on 07-22-2024 Chloride [Moles/Vol] 105 mmol/L 98-108 [facility] Comprehensive Metabolic Prof ilon 07-22-2024 Albumin [Mass/Vol] 4.3 g/dL Normal 3.4-4.8 [facility] Comment on above: Performed By: #### L 500.4050, L100.0100, L3100.2300, L504.2610 #### [facility] [address] [place], [address] Albumin/Globulin [Mass ratio] 1.5 {ratio} Normal 0.9-2.4 [facility] Comment on above: Performed By: #### L 500.4050, L100.0100, L3100.2300, L504.2610 #### [facility] [address] [place], [address] ALK PHOS 46 U/L Normal 40-129 [facility] Comment on above: Performed By: #### L 500.4050, L100.0100, L3100.2300, L504.2610 #### [facility] [address] [place], [address] ALT [Catalytic activity/Vol] 33 U/L Normal <=46 [facility] Comment on above: Performed By: #### L 500.4050, L100.0100, L3100.2300, L504.2610 #### [facility] [address] [place], [address] AST [Catalytic activity/Vol] 28 U/L Normal <=37 [facility] Comment on above: Performed By: #### L 500.4050, L100.0100, L3100.2300, L504.2610 #### [facility] [address] [place], [address] Bilirubin [Mass/Vol] 0.53 mg/dL Normal 0.00-1.30 [facility] Comment on above: Performed By: #### L 500.4050, L100.0100, L3100.2300, L504.2610 #### [facility] [address] [place], [address] BUN/CRE 23.9 RATIO High 10-20 [facility] Comment on above: Performed By: #### L 500.4050, L100.0100, L3100.2300, L504.2610 #### [facility] [address] [place], [address] Calcium [Mass/Vol] 9.6 mg/dL Normal 7.6-11.0 [facility] Comment on above: Performed By: #### L 500.4050, L100.0100, L3100.2300, L504.2610 #### [facility] [address] [place], [address] Chloride [Moles/Vol] 105 mmol/L Normal 98-108 [facility] Comment on above: Performed By: #### L 500.4050, L100.0100, L3100.2300, L504.2610 #### [facility] [address] [place], [address] CO2 [Moles/Vol] 23.4 mmol/L Normal 21.0-32.0 [facility] Comment on above: Performed By: #### L 500.4050, L100.0100, L3100.2300, L504.2610 #### [facility] [address] [place], [address] Creatinine [Mass/Vol] 0.92 mg/dL Normal 0.70-1.[address] [facility] Comment on above: Performed By: #### L 500.4050, L100.0100, L3100.2300, L504.2610 #### [facility] [address] [place], [address] GAP 11 Normal 5-15 [facility] Comment on above: Performed By: #### L 500.4050, L100.0100, L3100.2300, L504.2610 #### [facility] [address] [place], [address] GFR/1.73 sq M.predicted among non-blacks MDRD (S/P/Bld) [Vol rate/Area] 92 mL/min/{1.73_m2} Normal >60 [facility] Comment on above: Result Comment: mL/m in/1.73m2 CKD-EPI Creatinine Equation (2020) Performed By: #### L 500.4050, L100.0100, L3100.2300, L504.2610 #### [facility] [address] [place], [address] Globulin (S) [Mass/Vol] 2.9 g/dL Normal 2.2-4.2 [facility] Comment on above: Performed By: #### L 500.4050, L100.0100, L3100.2300, L504.2610 #### [facility] [address] [place], [address] Glucose [Mass/Vol] 98 mg/dL Normal 70-99 [facility] Comment on above: Performed By: #### L 500.4050, L100.0100, L3100.2300, L504.2610 #### [facility] [address] [place], [address] Potassium [Moles/Vol] 4.5 mmol/L Normal 3.3-5.[address] [facility] Comment on above: Result Comment: Hemo lysis present, Results??could be affected. ?? Performed By: #### L 500.4050, L100.0100, L3100.2300, L504.2610 #### [facility] [address] [place], [address] Sodium [Moles/Vol] 139 mmol/L Normal 133-145 [facility] Comment on above: Performed By: #### L 500.4050, L100.0100, L3100.2300, L504.2610 #### [facility] [address] [place], [address] T PROT 7.2 g/dL Normal 5.9-8.4 [facility] Comment on above: Performed By: #### L 500.4050, L100.0100, L3100.2300, L504.2610 #### [facility] [address] [place], [address] Urea nitrogen [Mass/Vol] 22 mg/dL High 4-19 [facility] Comment on above: Performed By: #### L 500.4050, L100.0100, L3100.2300, L504.2610 #### [facility] [address] [place], [address] Eosinophil percentageOrdered By: Mayank Martinez on 07-22-2024 Eosinophils/100 WBC (Bld) 6.5 % High 0-5 [facility] Erythrocyte distribution wid th ratioOrdered By: Mayank Martinez on 07-22-2024 Erythrocyte distribution width (RBC) [Ratio] 12.1 % 11.6-14.6 [facility] Erythrocyte distribution wid th standard deviationOrdered By: Mayank Martinez on 07-22-2024 Erythrocyte distribution width (RBC) [Ratio] 42.0 fl 35.1-43.9 [facility] Glomerular filtration rate ( GFR) estimation/1.73 sq m using serum, plasma, or whole bOrdered By: Mayank Martinez on 07-22-2024 GFR/1.73 sq M.predicted among non-blacks MDRD (S/P/Bld) [Vol rate/Area] 92 mL/min/{1.73_m2} >60 [facility] Comment on above: mL/min/1.73m2 CKD-EP I Creatinine Equation (2020) Hematocrit Auto (Bld) [Volum e fraction]Ordered By: Mayank Martinez on 07-22-2024 Hematocrit (Bld) [Volume fraction] 39.5 % Low 40-54 [facility] Hemoglobin measurementOrdere d By: Mayank Martinez on 07-22-2024 Hemoglobin (Bld) [Mass/Vol] 14.0 g/dL 13.0-16.5 [facility] Immature granulocytes/100 WB C Auto (Bld)Ordered By: Mayank Martinez on 07-22-2024 Immature granulocytes/100 WBC (Bld) 0.000 % 0.0-0.9 [facility] Comment on above: IG% - Immature Granu locytes (promyelocytes, myelocytes and metamyelocytes) > 1% indicates that a LEFT SHIFT is Present. LDHon 07-22-2024 LDH 248 U/L High 87-241 [facility] Comment on above: Order Comment: 1 Result Comment: Hemo lysis present, Results??could be affected. ?? Performed By: #### L 500.4050, L100.0100, L3100.2300, L504.2610 #### [facility] [address] [place], [address] LDL calc ser/plasOrdered By: Tung Tristan on 07-22-2024 Cholesterol in LDL [Mass/Vol] 139 mg/dL [facility] Comment on above: Qjsblyqkat=104-490 m g/dL & Higher Cjpz=927 mg/dL or greater Laboratory - Chemistry and C hemistry - challengeOrdered By: Mayank Martinez on 07-22-2024 AST [Catalytic activity/Vol] 28 U/L <38 [facility] Lactate dehydrogenase (LDH) measurementOrdered By: Mayank Martinez on 07-22-2024 LDH [Catalytic activity/Vol] 248 U/L High 87-241 [facility] Comment on above: Hemolysis present, R esults could be affected. Lipid Profileon 07-22-2024 CHOL:HDL 4.63 Normal [facility] Comment on above: Performed By: #### L 500.4100, L501.9910 #### [facility] [address] [place], [address] Cholesterol [Mass/Vol] 203 mg/dL High <=200 [facility] Comment on above: Result Comment: Chol esterol level, Desirable <200 mg/dL Borderline high cholesterol 200-239 mg/dL High cholesterol >=240 mg/dL Recommendations of the NCEP Adult Treatment Panel for the following risk-cutoff thresholds for the [place] population. Performed By: #### L 500.4100, L501.9910 #### [facility] [address] [place], [address] Cholesterol in HDL [Mass/Vol] 44 mg/dL Normal [facility] Comment on above: Result Comment: Azeb onal Cholesterol Education Program (NCEP) guidelines: <40 mg/dL: Low HDL-cholesterol (major risk factor for CHD) >= 60 mg/dL: High HDL-cholesterol (negative risk factor for CHD) HDL-cholesterol is affected by a number of factors, e.g. smoking, exercise, hormones, sex and age. Performed By: #### L 500.4100, L501.9910 #### [facility] [address] [place], [address] Cholesterol in LDL [Mass/Vol] 139 mg/dL Normal [facility] Comment on above: Result Comment: Bord bkktwq=584-038 mg/dL Higher Zxbp=732 mg/dL or greater Performed By: #### L 500.4100, L501.9910 #### [facility] [address] [place], [address] Cholesterol in VLDL [Mass/Vol] 20 mg/dL Normal 5-40 [facility] Comment on above: Performed By: #### L 500.4100, L501.9910 #### [facility] [address] [place], [address] Triglyceride [Mass/Vol] 99 mg/dL Normal [facility] Comment on above: Result Comment: The drugs N-Acetylcysteine and Metamizole may falsely depress this assay. Normal range: <150 mg/dL Borderline High: 150-199 mg/dL High: 200-499 mg/dL Very High: >500 mg/dL Performed By: #### L 500.4100, L501.9910 #### [facility] [address] [place], [address] MCV (mean corpuscular volume ) determinationOrdered By: Mayank Martinez on 07-22-2024 MCV (RBC) [Entitic vol] 95.6 fL High 80-94 [facility] Mean corpuscular hemoglobin (MCH) determinationOrdered By: Mayank Martinez on 07-22-2024 MCH (RBC) [Entitic mass] 33.9 pg High 27.0-32.0 [facility] Mean corpuscular hemoglobin concentration (MCHC) determinationOrdered By: Mayank Martinez on 07-22-2024 MCHC (RBC) [Mass/Vol] 35.4 g/dL 32-[address] [facility] Mean platelet volume determi nationOrdered By: Mayank Martinez on 07-22-2024 Platelet mean volume (Bld) [Entitic vol] 10.2 fL 6.2-12.0 [facility] Monocyte percentageOrdered B y: Mayank Martinez on 07-22-2024 Monocytes/100 WBC (Bld) 9.5 % 0-10 [facility] Neutrophil percentageOrdered By: Mayank Martinez on 07-22-2024 Neutrophils/100 WBC (Bld) 53.6 % 47-70 [facility] Nucleated red blood cell per centageOrdered By: Mayank Martinez on 07-22-2024 Nucleated RBC/100 WBC (Bld) [Ratio] 0 % 0-5 [facility] PSA,Total - Annual Screenon 07-22-2024 PSA,TOT SCREEN 0.23 ng/mL Normal 0.02-4.00 [facility] Comment on above: Result Comment: This test was performed using the [employer] tPSA method. Measured values of a patient??sample can vary depending on the testing procedure used. PSA values determined on patient samples by different testing procedures cannot be used interchangeably. If there is a change in PSA assays while monitoring therapy, sequential testing should be performed to confirm baseline values. Performed By: #### L 500.4100, L501.9910 #### [facility] [address] [place], [address] Platelet countOrdered By: Holly Martinez on 07-22-2024 Platelets (Bld) [#/Vol] 262 10*3/uL 150-450 [facility] Potassium measurement (mass/ volume)Ordered By: Mayank Martinez on 07-22-2024 Potassium (Unsp spec) [Mass/Vol] 4.5 mmol/L 3.3-5.1 [facility] Comment on above: Hemolysis present, R esults could be affected. RBC Auto (Bld) [#/Vol]Ordere d By: Mayank Martinez on 07-22-2024 RBC (Bld) [#/Vol] 4.13 10*6/uL Low 4.6-6.2 [facility] Screening total cholesterol/ high density lipoprotein (HDL) cholesterol ratioOrdered By: Tung Tristan on 07-22-2024 Cholesterol.total/Chol esterol in HDL [Mass ratio] 4.63 {ratio} [facility] Serum creatinine measurement (mass/volume)Ordered By: Mayank Martinez on 07-22-2024 Creatinine [Mass/Vol] 0.92 mg/dL 0.70-1.[address] [facility] Serum globulin measurementOr dered By: Mayank Martinez on 07-22-2024 Globulin (S) [Mass/Vol] 2.9 g/dL 2.2-4.2 [facility] Serum glucose measurement (m ass/volume)Ordered By: Mayank Martinez on 07-22-2024 Glucose [Mass/Vol] 98 mg/dL 70-99 [facility] Serum or plasma alanine shea otransferase (ALT) measurementOrdered By: Mayank Martinez on 07-22-2024 ALT [Catalytic activity/Vol] 33 U/L <47 [facility] Serum or plasma albumin igor urement (mass/volume)Ordered By: Mayank Martinez on 07-22-2024 Albumin [Mass/Vol] 4.3 g/dL 3.4-4.8 [facility] Serum or plasma albumin/glob ulin mass ratioOrdered By: Mayank Martinez on 07-22-2024 Albumin/Globulin [Mass ratio] 1.5 {ratio} 0.9-2.4 [facility] Serum or plasma alkaline christophe sphatase measurementOrdered By: Mayank Martinez on 07-22-2024 ALP [Catalytic activity/Vol] 46 U/L 40-129 [facility] Serum or plasma calcium igor urement (mass/volume)Ordered By: Mayank Martinez on 07-22-2024 Calcium [Mass/Vol] 9.6 mg/dL 7.6-11.0 [facility] Serum or plasma carcinoembry onic antigen measurement (mass/volume)Ordered By: Mayank Martinez on 07-22-2024 Carcinoembryonic Ag [Mass/Vol] 1.4 ng/mL 0.0-4.7 [facility] Comment on above: Nonsmokers <3.9 Smok ers <5.6[employer] Electrochemiluminescence Immunoassay(ECLIA)Values obtained with different assay methods or kitscannot be used interchangeably. Results cannot beinterpreted as absolute evidence of the presence orabsence of malignant disease.Performed at: [facility] [employer] [id number] Director: Zach Palomo PhD, Phone: [phone] Serum or plasma cholesterol in HDL measurement (mass/volume)Ordered By: Tung Tristan on 07-22-2024 Cholesterol in HDL [Mass/Vol] 44 mg/dL >40 [facility] Comment on above: National Cholesterol Education Program (NCEP) guidelines:<40 mg/dL: Low HDL-cholesterol (major risk factor for CHD)>= 60 mg/dL: High HDL-cholesterol (negative risk factor for CHD)HDL-cholesterol is affected by a number of factors, e.g. smoking, exercise, hormones, sex and age. Serum or plasma cholesterol measurement (mass/volume)Ordered By: Tung Tristan on 05-07-2025 Cholesterol [Mass/Vol] 203 mg/dL High <201 [facility] Comment on above: Cholesterol level, D esirable <200 mg/dLBorderline high cholesterol 200-239 mg/dLHigh cholesterol >=240 mg/dLRecommendations of the NCEP Adult Treatment Panel for the following risk-cutoff thresholds for the [place] population. Serum or plasma urea nitroge n measurement (mass/volume)Ordered By: Mayank Martinez on 07-22-2024 Urea nitrogen [Mass/Vol] 22 mg/dL High 4-19 [facility] Sodium levelOrdered By: Hernandez Martinez on 07-22-2024 Sodium [Moles/Vol] 139 mmol/L 133-145 [facility] Total proteinOrdered By: Froylan Martinez on 07-22-2024 Protein [Mass/Vol] 7.2 g/dL 5.9-8.4 [facility] Triglycerides measurementOrd ered By: Tung Tristan on 07-22-2024 Triglyceride [Mass/Vol] 99 mg/dL <199 [facility] Comment on above: The drugs N-Acetylcy steine and Metamizole may falsely depress this assay. Normal range: <150 mg/dLBorderline High: 150-199 mg/dLHigh: 200-499 mg/dLVery High: >500 mg/dL White blood cell (WBC) count Ordered By: Mayank Martinez on 07-22-2024 WBC (Bld) [#/Vol] 4.3 10*3/uL Low 4.4-11.0 [facility] Absolute lymphocyte countOrd ered By: Mayank Martinez on 07-24-2023 Lymphocytes Auto (Unsp spec) [#/Vol] 1.25 10*3/uL 0.83-4.51 [facility] Automated lymphocyte count a s percentage of total leukocytesOrdered By: Mayank Martinez on 07-24-2023 Lymphocytes/100 WBC Auto (Unsp spec) 25.2 % 19-41 [facility] Basophil percentageOrdered B y: Mayank Martinez on 07-24-2023 Basophils/100 WBC (Bld) 0.8 % 0-1 [facility] Bilirubin [Mass/Vol] 0.50 mg/dL 0.20-1.00 [facility] Comment on above: For patients on eltr ombopag therapy, use of Dimension Nelson TBIL is not recommended. Chloride [Moles/Vol] 106 mmol/L 98-107 [facility] Cholesterol [Mass/Vol] 207 mg/dL <200 [facility] Comment on above: <200 mg/dL Desirable 200-240 mg/dL Borderline >240 mg/dL High Risk Eosinophils/100 WBC (Bld) 3.6 % 0-5 [facility] Glucose [Mass/Vol] 101 mg/dL 74-106 [facility] Comment on above: Fasting Glucose resu lt from 100 to 125 mg/dL suggests IMPAIRED HOMEOSTASIS per A.D.A. criteria. Hemoglobin (Bld) [Mass/Vol] 14.3 g/dL 13.0-16.5 [facility] LDH [Catalytic activity/Vol] 179 U/L 87-241 [facility] Monocytes/100 WBC (Bld) 8.5 % 0-10 [facility] Neutrophils (Bld) [#/Vol] 3.1 10*3/uL 2.0-7.7 [facility] Neutrophils/100 WBC (Bld) 61.5 % 47-70 [facility] Potassium [Moles/Vol] 4.4 mmol/L 3.5-5.[address] [facility] Protein [Mass/Vol] 7.6 g/dL 6.4-8.2 [facility] Sodium [Moles/Vol] 137 mmol/L 136-145 [facility] Triglyceride [Mass/Vol] 95 mg/dL <199 [facility] Comment on above: The drugs N-Acetylcy steine and Metamizole may falsely depress this assay.Serum Triglycerides Reference Interval Normal <150 mg/dL Borderline high 150 - 199 mg/dL High 200 - 499 mg/dL Very High > or = 500 mg/dL WBC (Bld) [#/Vol] 5.0 10*3/uL 4.4-11.0 [facility] Determination of erythrocyte mean corpuscular volume (MCV)Ordered By: Mayank Martinez on 07-24-2023 MCV (RBC) [Entitic vol] 96.1 fL 80-94 [facility] Erythrocyte distribution wid th ratioOrdered By: Mayank Martinez on 07-24-2023 Erythrocyte distribution width (RBC) [Ratio] 12.1 % 11.6-14.6 [facility] Erythrocyte distribution wid th standard deviationOrdered By: Mayank Sabrina on 07-24-2023 Erythrocyte distribution width (RBC) [Entitic vol] 42.5 fL 35.1-43.9 [facility] Hematocrit Auto (Bld) [Volum e fraction]Ordered By: Mayank Martinez on 07-24-2023 Hematocrit (Bld) [Volume fraction] 41.9 % 40-54 [facility] Immature granulocytes/100 WB C Auto (Bld)Ordered By: Mayank Sabrina on 07-24-2023 Immature granulocytes/100 WBC (Bld) 0.400 % 0.0-0.9 [facility] Comment on above: IG% - Immature Granu locytes (promyelocytes, myelocytes and metamyelocytes) > 1% indicates that a LEFT SHIFT is Present. Laboratory - Chemistry and C hemistry - challengeOrdered By: Harrington Sabrina on 07-24-2023 Albumin/Globulin [Mass ratio] 1.1 {ratio} 0.9-2.4 [facility] ALP [Catalytic activity/Vol] 44 U/L 45-117 [facility] ALT [Catalytic activity/Vol] 30 U/L 16-61 [facility] Cholesterol in HDL [Mass/Vol] 48 mg/dL >40 [facility] Comment on above: The drugs N-Acetylcy steine and Metamizole may falsely depress this assay. Reference Range HDL <40 mg/dL Low HDL Cholesterol HDL >or= 60 mg/dL High HDL Cholesterol Cholesterol in LDL [Mass/Vol] 140 mg/dL 0-130 [facility] CO2 [Moles/Vol] 26.0 mmol/L 21.0-32.0 [facility] Globulin (S) [Mass/Vol] 3.7 g/dL 2.2-4.2 [facility] Urea nitrogen/Creatinine [Mass ratio] 24.8 mg/mg 10-20 [facility] - Hematology and Cell countsOrdered By: Mayank Michelle on 07-24-2023 MCH (RBC) [Entitic mass] 32.8 pg 27.0-32.0 [facility] MCHC (RBC) [Mass/Vol] 34.1 g/dL 32-[address] [facility] Nucleated RBC/100 WBC (Bld) [Ratio] 0 % 0-5 [facility] Platelet mean volume (Bld) [Entitic vol] 10.2 fL 6.2-12.0 [facility] Platelets (Bld) [#/Vol] 264 10*3/uL 150-450 [facility] No Panel InformationOrdered By: Mayank Martinez on 07-24-2023 Estimated GFR (MDRD) Amer 111 mL/min >60 [facility] Comment on above: GFR Calc Estimated GFR (MDRD) Non-Af Amer 92 mL/min >60 [facility] Comment on above: Non- GFR Calc Prostate Specific Antigen Screen 0.23 ng/mL 0.00-4.00 [facility] Comment on above: This test was perfor med using the TPSA assay method for [employer] chemistry system. Values obtained with differentassay methods cannot be used interchangably.When changing PSA assays in the course of monitoring apatient, additional sequential testing should be carriedout to confirm baseline values. VLDL Cholesterol 19 mg/dL 5-40 [facility] RBC Auto (Bld) [#/Vol]Ordere d By: Mayank Martinez on 07-24-2023 RBC (Bld) [#/Vol] 4.36 10*6/uL 4.6-6.2 [facility] Serum or plasma calcium igor urement (mass/volume)Ordered By: Mayank Martinez on 07-24-2023 Calcium [Mass/Vol] 9.4 mg/dL 8.5-10.1 [facility] Serum or plasma carcinoembry onic antigen measurement (mass/volume)Ordered By: Mayank Martinez on 07-24-2023 Carcinoembryonic Ag [Mass/Vol] 1.1 ng/mL 0.0-4.7 [facility] Comment on above: Nonsmokers <3.9 Smok ers <5.6[employer] Electrochemiluminescence Immunoassay(ECLIA)Values obtained with different assay methods or kitscannot be used interchangeably. Results cannot beinterpreted as absolute evidence of the presence orabsence of malignant disease.Performed at: [employer] [id number] Director: Zach Palomo PhD, Phone: [phone] Serum or plasma creatinine m easurement (mass/volume)Ordered By: Mayank Sabrina on 07-24-2023 Creatinine [Mass/Vol] 0.89 mg/dL 0.70-1.[address] [facility] Comment on above: The validity of the calculated GFR & GFRAA in patients over 70 years has not been determined. Clinical correlation is essential. Serum or plasma urea nitroge n measurement (mass/volume)Ordered By: Mayank Bennett on 07-24-2023 Urea nitrogen [Mass/Vol] 22 mg/dL 7-18 [facility] Thin prep Papanicolaou smear with manual screeningOrdered By: [facility] on 07-24-2023 Thin prep Papanicolaou smear with manual screening 3.9 g/dL 3.2-5.0 [facility] Thin prep Papanicolaou smear with manual screening 18 U/L 15-37 [facility] Thin prep Papanicolaou smear with manual screening 5 5-15 [facility] Absolute lymphocyte counton 07-26-2021 Lymphocytes Auto (Unsp spec) [#/Vol] 1.32 10*3/uL 0.83-4.51 [facility] Work Phone: Basophil percentageon 2021 Basophils/100 WBC (Bld) 0.6 % 0-1 [facility] Work Phone: Bilirubin [Mass/Vol] 0.70 mg/dL 0.20-1.00 [facility] Work Phone: Comment on above: For patients on eltr ombopag therapy, use of Dimension Nelson TBIL is not recommended. Chloride [Moles/Vol] 105 mmol/L 98-107 [facility] Work Phone: Cholesterol [Mass/Vol] 190 mg/dL <200 [facility] Work Phone: Comment on above: <200 mg/dL Desirable 200-240 mg/dL Borderline >240 mg/dL High Risk Eosinophils/100 WBC (Bld) 4.4 % 0-5 [facility] Work Phone: Glucose [Mass/Vol] 104 mg/dL 74-106 [facility] Work Phone: Comment on above: Fasting Glucose resu lt from 100 to 125 mg/dL suggests IMPAIRED HOMEOSTASIS per A.D.A. criteria. Neutrophils (Bld) [#/Vol] 3.0 10*3/uL 2.0-7.7 [facility] Work Phone: [phone] Neutrophils/100 WBC (Bld) 59.5 % 47-70 [facility] Work Phone: [phone] Potassium [Moles/Vol] 4.3 mmol/L 3.5-5.[address] [facility] Work Phone: [phone] Protein [Mass/Vol] 7.2 g/dL 6.4-8.2 [facility] Work Phone: [phone] Sodium [Moles/Vol] 139 mmol/L 136-145 [facility] Work Phone: [phone] Triglyceride [Mass/Vol] 114 mg/dL [facility] Work Phone: [phone] Comment on above: The drugs N-Acetylcy steine and Metamizole may falsely depress this assay.Serum Triglycerides Reference Interval Normal <150 mg/dL Borderline high 150 - 199 mg/dL High 200 - 499 mg/dL Very High > or = 500 mg/dL WBC (Bld) [#/Vol] 5.0 10*3/uL 4.4-11.0 [facility] Work Phone: [phone] Blood erythrocytes count (nu mber/volume)on 07-26-2021 RBC (Bld) [#/Vol] 4.09 10*6/uL 4.6-6.2 [facility] Work Phone: [phone] Blood hemoglobin measurement (mass/volume)on 07-26-2021 Hemoglobin (Bld) [Mass/Vol] 13.7 g/dL 13.0-16.5 [facility] Work Phone: [phone] Blood lymphocytes/100 leukoc yteson 07-26-2021 Lymphocytes/100 WBC (Bld) 26.2 % 19-41 [facility] Work Phone: [phone] Blood monocytes/100 leukocyt eson 07-26-2021 Monocytes/100 WBC (Bld) 9.1 % 0-10 [facility] Work Phone: [phone] Blood platelet mean volumeon 07-26-2021 Platelet mean volume (Bld) [Entitic vol] 9.7 fL 6.2-12.0 [facility] Work Phone: [phone] Determination of erythrocyte mean corpuscular volume (MCV)on 07-26-2021 MCV (RBC) [Entitic vol] 97.1 fL 80-94 [facility] Work Phone: [phone] Hematocrit Auto (Bld) [Volum e fraction]on 07-26-2021 Hematocrit (Bld) [Volume fraction] 39.7 % 40-54 [facility] Work Phone: Laboratory - Chemistry and C hemistry - challengeon 07-26-2021 ALP [Catalytic activity/Vol] 46 U/L 45-117 [facility] Work Phone: [phone] ALT [Catalytic activity/Vol] 23 U/L 16-61 [facility] Work Phone: [phone] CO2 [Moles/Vol] 30.0 mmol/L 21.0-32.0 [facility] Work Phone: Globulin (S) [Mass/Vol] 3.5 g/dL 2.2-4.2 [facility] Work Phone: [phone] Urea nitrogen/Creatinine [Mass ratio] 19.1 mg/mg 10-20 [facility] Work Phone: [phone] Laboratory - Hematology and Cell countson 07-26-2021 Erythrocyte distribution width (RBC) [Entitic vol] 43.3 fL 35.1-43.9 [facility] Work Phone: [phone] Erythrocyte distribution width (RBC) [Ratio] 12.1 % 11.6-14.6 [facility] Work Phone: [phone] Immature granulocytes/100 WBC (Bld) 0.200 % 0.0-0.9 [facility] Work Phone: [phone] Comment on above: IG% - Immature Granu locytes (promyelocytes, myelocytes and metamyelocytes) > 1% indicates that a LEFT SHIFT is Present. MCH (RBC) [Entitic mass] 33.5 pg 27.0-32.0 [facility] Work Phone: [phone] Nucleated RBC/100 WBC (Bld) [Ratio] 0 % 0-5 [facility] Work Phone: [phone] MCHC Auto (RBC) [Mass/Vol]on 07-26-2021 MCHC (RBC) [Mass/Vol] 34.5 g/dL 32-[address] [facility] Work Phone: [phone] Panel Informationon 07-26 Estimated GFR (MDRD) Amer 104 mL/min >60 [facility] Work Phone: [phone] Comment on above: GFR Calc Estimated GFR (MDRD) Non-Af Amer 86 mL/min >60 [facility] Work Phone: [phone] Comment on above: Non- GFR Calc Prostate Specific Antigen Screen 0.16 ng/mL 0.00-4.00 [facility] Work Phone: [phone] Comment on above: This test was perfor med using the TPSA assay method for [employer] chemistry system. Values obtained with differentassay methods cannot be used interchangably.When changing PSA assays in the course of monitoring apatient, additional sequential testing should be carriedout to confirm baseline values. Platelets bldon 07-26-2021 Platelets (Bld) [#/Vol] 261 10*3/uL 150-450 [facility] Work Phone: [phone] Serum or plasma albumin igor urement (mass/volume)on 07-26-2021 Albumin [Mass/Vol] 3.7 g/dL 3.2-5.0 [facility] Work Phone: [phone] Serum or plasma albumin/glob ulin mass ratioon 07-26-2021 Albumin/Globulin [Mass ratio] 1.1 {ratio} 0.9-2.4 [facility] Work Phone: [phone] Serum or plasma calcium igor urement (mass/volume)on 07-26-2021 Calcium [Mass/Vol] 8.9 mg/dL 8.5-10.1 [facility] Work Phone: Serum or plasma cholesterol in HDL measurement (mass/volume)on 07-26-2021 Cholesterol in HDL [Mass/Vol] 43 mg/dL [facility] Work Phone: Comment on above: The drugs N-Acetylcy steine and Metamizole may falsely depress this assay. Reference Range HDL <40 mg/dL Low HDL Cholesterol HDL >or= 60 mg/dL High HDL Cholesterol Serum or plasma cholesterol in VLDL measurement (mass/volume)on 07-26-2021 Cholesterol in VLDL [Mass/Vol] 23 mg/dL 5-40 [facility] Work Phone: Serum or plasma creatinine m easurement (mass/volume)on 07-26-2021 Creatinine [Mass/Vol] 0.94 mg/dL 0.70-1.[address] [facility] Work Phone: Comment on above: The validity of the calculated GFR & GFRAA in patients over 70 years has not been determined. Clinical correlation is essential. Serum or plasma low density lipoprotein (LDL) cholesterol measurement (mass/volume)on 07-26-2021 Cholesterol in LDL [Mass/Vol] 124 mg/dL 0-130 [facility] Work Phone: Serum or plasma urea nitroge n measurement (mass/volume)on 07-26-2021 Urea nitrogen [Mass/Vol] 18 mg/dL 7-18 [facility] Work Phone: [phone] Thin prep Papanicolaou smear with manual screeningon 07-26-2021 Thin prep Papanicolaou smear with manual screening 15 U/L 15-37 [facility] Work Phone: [phone] Thin prep Papanicolaou smear with manual screening 4 5-15 [facility] Work Phone: [phone] Thin prep Papanicolaou smear with manual screening 178 U/L 87-241 [facility] Work Phone: Final Surgical Pathology Rep christin 12-23-2019 Final Surgical Pathology Report . Pathology Reports Accession: Collected Date/Time: Received Date/Time: Pathologist: [id number] 12/21/2019 09:49 EDT 12/22/2019 09:37 EDT DO TUNG WARREN Final Surgical Pathology Report DIAGNOSIS: FRAGMENTS OF HYPERPLASTIC POLYP, SIGMOID COLON. COMMENT: [facility] - [id number] CLINICAL INFORMATION: Procedure: FLEXIBLE SIGMOIDOSCOPY Preoperative diagnosis: HISTORY OF COLON CANCER Postoperative diagnosis: HISTORY OF COLON CANCER SPECIMEN: SIGMOID BIOPSY @ 35 CM GROSS DESCRIPTION: Received in formalin labeled sigmoid biopsy @35 cm are multiple friable fragments of reyes tissue, in aggregate 0.6 x 0.6 x 0.1cm. TE-1. dictated by Nile Lane M.D. Dictated by KATIE HERNÁNDEZ MD MICROSCOPIC DESCRIPTION: Slides reviewed. Electronically Signed by Pathology Report verified by [facility] Electronically signed by TUNG WARREN DO Sign out Date: 12/23/2019 13:20 Performing Lab: [address] ([place]) Comment on above: Performed By: #### S PFR #### [place] [id number] Clinical Summary: HMSPatient IDon 04-08-2019 OOP [facility] Work Phone: Office Visit: Workers Comp - Consult, Rm: [id number] NEGATED: Highlighted rowMRI (magnetic resonance imaging) history of the left knee on 01/22/2019 at [facility], [facility] Work Phone: Clinical Lists Update: Prelo ad Extendedon 04-06-2019 Tobacco smoking status NHIS Tobacco smoking status NHIS [facility] Work Phone: Clinical Summary: Data Submi tted by Patient in [place] 04-06-2019 #DEP CHLDRN No [facility] Work Phone: [place] 1 floor [facility] Work Phone: DEP ALG LIST Penicillin,I don't h ave any food allergies.,I don't have any environmental allergies. [facility] Work Phone: DEP DAD PMH Alzheimer [facility] Work Phone: DEP DRUG USE No [facility] Work Phone: DEP EMPLOYER employed [facility] Work Phone: DEP ETOH USE No [facility] Work Phone: DEP EXERCISE No [facility] Work Phone: DEP MED LIST Lisinopril 10 mg Tab , 2 times per day [facility] Work Phone: DEP MOM PMH High blood pressure [facility] Work Phone: DEP PMH Cancer, High blood pressure [facility] Work Phone: DEP SH CSMO never smoker [facility] Work Phone: DEP SH MAST single [facility] Work Phone: DEP SURGERY Tonsillectomy [facility] Work Phone: EXERVEIN COM stopped working out and walking when I hurt my knee [facility] Work Phone: FATHER A/D Alive [facility] Work Phone: MEDICCOMMNTS multivitamin [facility] Work Phone: MOTHER A/D Alive [facility] Work Phone: RLATNSHPINFR Self [facility] Work Phone: SISTERS PMH Arthritis [facility] Work Phone: SWHOUTYPE mobile home [facility] Work Phone: WEBSURGCOM colon cancer surgery Emmanuelle [facility] Work Phone: Vital Signs Date Time Vital Sign Value Performing Clinician Facility 07-29-2024 15:01-0400 Body height 180.[address] Tung Tristan DO Work Phone: [facility] 07-29-2024 15:01-0400 Body mass index (BMI) [Ratio] 36.9 kg/m2 Dr. Tung Tristan DO Work Phone: [facility] 07-29-2024 15:01-0400 Body temperature 98.4 [degF] Dr. Tung Tristan DO Work Phone: [facility] 07-29-2024 15:01-0400 Body weight 120.[address] Tung Tristan DO Work Phone: [facility] 07-29-2024 15:01-0400 Diastolic blood pressure 88 mm[Hg] Dr. Tung Tristan DO Work Phone: [facility] 07-29-2024 15:01-0400 Heart rate 83 /min Dr. Tung Tristan DO Work Phone: [facility] 07-29-2024 15:01-0400 Respiratory rate 18 /min Dr. Tung Tristan DO Work Phone: [facility] 07-29-2024 15:01-0400 SaO2% (BldA) [Mass fraction] 96 % Dr. Tung Tristan DO Work Phone: [facility] 07-29-2024 15:01-0400 Systolic blood pressure 142 mm[Hg] Dr. Tung Tristan DO Work Phone: [facility] NEGATED: Highlighted [id number] 13:01-0500 BMI (Body Mass Index) 34.99 kg/m2 Giana Bee [employer]SO[employer] [facility] Work Phone: NEGATED: Highlighted [id number] 13:01-0500 Body weight 113.4 kg Giana Bee OUTSOLE HAND[employer]ER [facility] Work Phone: NEGATED: Highlighted [id number] 13:010500 Body weight 114 kg Giana Bee OUTSOLE HANDLER [facility] Work Phone: NEGATED: Highlighted [id number] 13:01-0500 BP Diastolic 81 mm[Hg] Giana Bee OUTSOLE HAND[employer] [facility] Work Phone: NEGATED: Highlighted [id number] 13:010500 BP Systolic 113 mm[Hg] Giana Bee OUTSOLE HAND[employer]ER [facility] Work Phone: NEGATED: Highlighted [id number] 13:010500 Height 180.34 cm Giana Bee OUTSOLE HAND[employer] [facility] Work Phone: NEGATED: Highlighted [id number] 13:0500 Height 180 cm Giana Bee OUTSOLE HAND[employer]ER [facility] Work Phone: NEGATED: Highlighted [id number] 13:0500 Pulse (Heart Rate) 88 /min Giana Bee OUTSOLE HAND[employer] [facility] Work Phone: Encounters Encounter Date Encounter Type Care Provider Facility Start: 10-21-2024 ambulatory Tung Azalea Facility: [facility] Start: 10-01-2024 End: 10-01-[address] Tung Tristan DO Work Phone: -[facility] Start: 10-01-2024 End: 10-01-[address] Tung Tristan DO -[facility] Work Phone: Start: 10-01-2024 End: 10-01-2024 ambulatory Tung Tristan Facility:[facility] Start: 07-29-2024 End: 07-29-[address] Mayank Martinez MD -[facility] Work Phone: Start: 07-29-2024 End: 07-29-[address] Tugn Tristan DO Work Phone: [facility] Work Phone: Start: 07-22-2024 End: 07-22-[address] Tung Tristan DO Work Phone: [facility] Work Phone: Start: 07-22-2024 End: 07-22-[address] Tung Tristan DO -Laboratory Work Phone: Start: 07-22-2024 End: 07-22-2024 ambulatory Tung Tristan Facility:[facility] Start: 07-24-2023 End: 07-24-2023 ambulatory [facility] Work Phone: Start: 07-24-2023 End: 07-24-2023 Patient encounter procedure [facility] Work Phone: Start: 07-26-2021 End: 07-26-2021 Patient encounter procedure [facility] Start: 04-08-2019 End: 04-08-2019 Patient encounter procedure Angel Damon MD Work Phone: [facility] Work Phone: Procedures Date Procedure Procedure Detail Performing Clinician Start: 07-22-2024 Prostate specific antigen measurement Dr. Tung Tristan DO Work Phone: Comment on above: This test was perfor med using the [employer] tPSA method. Measured values of a patient sample can vary depending on the testing procedure used. PSA values determined on patient samples by different testing procedures cannot be used interchangeably. If there is a change in PSA assays while monitoring therapy, sequential testing should be performed to confirm baseline values. Start: 04-08-2019 End: 04-08-2019 Blood pressure within normal parameters - no follow-up required Angel Damon MD Work Phone: Start: 04-08-2019 End: 04-08-2019 BMI documented as above normal parameters - follow-up documented Angel Damon MD Work Phone: Start: 04-08-2019 End: 04-08-2019 Documentation of current medications Angel Damon MD Work Phone: Start: 04-08-2019 End: 04-08-2019 Pain assessment documented as negative - follow-up not required Angel Damon MD Work Phone: Start: 04-08-2019 End: 04-08-2019 Tobacco non-user Angel Damon MD Work Phone: NEGATED: Highlighted rowStart: 04-08-2019 End: 04-08-2019 Documentation of current medications Giana Bee LPN Plan of Treatment Date Care Activity Detail Author Start: 04-08-2019 End: 04-08-2019 Appointment Appointment [facility] Work Phone: Start: 04-08-2019 End: 04-08-2019 Radiologic examination knee 1/2 views XR KNEE 1-2 VWS-LT [facility] Work Phone: Payers Date Payer Category Payer Self-pay [id number] Private Health Insurance [id number] 2016 Unknown [id number] Private Health Insurance [id number] Unknown [id number] Unknown [id number] Unknown [id number] Unknown [id number] Social History Date Type Detail Facility Start: 04-08-2019 End: 04-08-2019 Assertion Unknown if ever smoked [facility] Work Phone: Start: 11-06-2013 None [facility] Start: 11-06-2013 With Family [facility] Start: 11-06-2013 Non-smoker [facility] Start: 1960 Sex Assigned At Male [facility] Start: 08-04-2019 Tobacco smoking stat us NHIS Never smoked tobacco (finding) [facility] Evaluation note 07-29-2024 Note Date & Type Note Facility 07-29-2024 Evaluation note Diagnosis Onset Date Resolution History of colon cancer chronic July 29, 2024 2 :58pm [facility] Work Phone: Progress note 07-29-2024 Note Date & Type Note Facility 07-29-2024 Progress note [facility] Progress note 07-29-2024 Note Date & Type Note Facility 07-29-2024 Progress note Note Date/Time July 29, 2024 3:25p m [facility] [address] [place] [id number] OFFICE VISIT Date of Service: 07/29/24 1501 MR#: [id number] Acct: [id number] Name: BETTY MOONEY Rep #: [id number] : 1960 From: Mayank Martinez MD Age/Sex: 64/M Location: [facility] Status: Signed HPI Subjective Date of Service 07/29/24 Chief Complaint F/u for colon cancer. History of Present Illness 64 year-old man was diagnosed with colon cancer stage II( T3 N0 M0). 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 It invaded through the muscularis propria into the subserosal adipose tissue, lymphnodes 40 out of 40 with negative. He is currently on surveillance and comes in for follow-up, he feels well. [facility] Medical History Kidney stones DVT (deep venous thrombosis) Colon cancer Surgical History History of tonsillectomy History of colon resection Family History Father Hypertension Heart disease Anemia Mother Hypertension Anemia Social History Smoking Status: Never smoker ROS Constitutional Constitutional: Reports systems reviewed and no addt'l complaints, except as documented Eyes Eyes: Reports systems reviewed and no addt'l complaints, except as documented ENT HEENT: Reports systems reviewed and no addt'l complaints, except as documented Cardiovascular Cardiovascular: Reports systems reviewed and no addt'l complaints, except as documented Respiratory/Chest Respiratory/Chest: Reports systems reviewed and no addt'l complaints, except as documented Gastrointestinal Gastrointestinal: Reports systems reviewed and no addt'l complaints, except as documented Genitourinary Genitourinary: Reports systems reviewed and no addt'l complaints, except as documented Musculoskeletal Musculoskeletal: Reports systems reviewed and no addt'l complaints, except as documented Integumentary Integumentary: Reports systems reviewed and no addt'l complaints, except as documented Neurologic Neurologic: Reports systems reviewed and no addt'l complaints, except as documented Psychiatric Psychiatric: Reports systems reviewed and no addt'l complaints, except as documented Endocrine Endocrinology: Reports systems reviewed and no addt'l complaints, except as documented Hematologic/Lymphatic Hematologic/Lymphatic: Reports systems reviewed and no addt'l complaints, exceptas documented Allergic/Immunologic Allergic/Immunologic: Reports systems reviewed and no addt'l complaints, except as documented Intake Vital Signs 07/31/23 13:55 07/29/24 15:01 Height 5 ft 11 in 5 ft 11 in Weight: 120.202 kg BMI 36.9 BP 142/88 H Blood Pressure Location Lt brachial Position Sitting Respiration 18 Pulse 83 Pulse Source Monitor Temp 98.4 F Temperature Source Temporal Artery Pulse Oximetry (%) 96 Oxygen Delivery Method room air Intake Is patient in pain?: No Allergies Penicillins Allergy (Verified 07/29/24 15:07) Unknown Medications ?Medication ?Instructions ?Recorded ?Confirmed ?Type lisinopril 10 mg tablet 10 mg PO BID 11/06/13 History meloxicam 15 mg tablet 15 mg PO QDAY 07/29/2407/29 History Have you fallen in the past year?: No Central Venous Access Central Venous Access: No Laboratory Tests 02/18/18 06/06/18 06/06/18 09:14 06:18 06:18 WBC 3.9 L Hgb 14.7 Hct 42.4 Plt Count 245 Absolute Neuts (auto) 1.7 L Absolute Lymphs (auto) Sodium Potassium Chloride Carbon Dioxide BUN Creatinine Glucose Calcium Total Bilirubin AST ALT Alkaline Phosphatase Lactate Dehydrogenase Total Protein Albumin Globulin Carcinoembryonic Ag 1.4 1.4 1.4 PSA Screen 06/03/19 07/20/20 07/26/21 06:51 07:29 07:14 WBC 5.6 5.0 Hgb 14.7 13.7 Hct 39.7 L Plt Count 281 261 Absolute Neuts (auto) Absolute Lymphs (auto) Sodium 139 Potassium 4.3 Chloride 105 Carbon Dioxide 30.0 BUN 18 Creatinine 0.94 Glucose Calcium 8.9 Total Bilirubin 0.70 AST 15 ALT 23 Alkaline Phosphatase 46 Lactate Dehydrogenase 178 Total Protein 7.2 Albumin 3.7 Globulin 3.5 Carcinoembryonic Ag 1.3 1.4 PSA Screen 07/25/22 07/24/23 07/22/24 07:04 08:38 07:57 WBC 5.0 Hgb 14.3 Hct 41.9 Plt Count 264 Absolute Neuts (auto) 3.1 Absolute Lymphs (auto) 1.25 Sodium 137 Potassium 4.4 Chloride 106 Carbon Dioxide 26.0 BUN 22 H Creatinine 0.89 Glucose 101 Calcium 9.4 Total Bilirubin 0.50 AST 18 ALT 30 Alkaline Phosphatase 44 L Lactate Dehydrogenase 179 Total Protein 7.6 Albumin 3.9 Globulin 3.7 Carcinoembryonic Ag 1.2 1.1 1.4 PSA Screen 0.23 Exam Physical Exam Const General Appearance: cooperative and comfortable HEENT normocephalic, hearing grossly normal bilaterally, external ears normal and external nose normal Eyes PERRL, conjunctivae normal and no scleral icterus Neck supple Lymph Lymphatic: no lymphadenopathy noted Chest inspection of chest normal Resp normal respiratory effort and clear to auscultation bilaterally Cardio regular rate, regular rhythm, S1 normal heart sound and S2 normal heart sound GI normal to inspection, nondistended, normoactive bowel sounds no CVA tenderness Back/Spine thoracic and lumbar spine normal to inspection Extremity normal to inspection and no clubbing, cyanosis or edema Neuro oriented x3, CN's II-XII intact bilaterally, moves all extremities and no focal motor deficits Coding Level of Care Code Off vis,est,level 3 Exam Problem Focused Diagnoses History of colon cancer Z85.038 Assessment and Plan Assessment and Plan (1) History of colon cancer: Status: Chronic Comment: No evidence of disease clinically. CEA is normal and stable. Plan: To continue observation and surveillance. Plan Details Follow Up: 12 Months Clinical Quality Measures Falls Risk Screening/Assistive Devices Have you fallen in the past year?: No 07/29/24 1525 <Electronically signed by Mayank Gomez> Date _ Mayank Martinez MD Cosigner Signature: Date (if applicable) CC: Dr. Tung Tristan, DO ~ [facility] Work Phone: Evaluation note Note Date & Type Note Facility Evaluation note No assessment information availa ble [facility] Work Phone: Evaluation note Note Date & Type Note Facility Evaluation note Diagnosis Onset Date Resolution History of colon cancer chronic July 29, 2024 2 :58pm [facility] Work Phone: Reason for referral (narrative) Note Date & Type Note Facility Reason for referral (narrative) No reason for referral information available [facility] Work Phone: Summary Purpose Family History No Family History Records Found Relationship Condition Age at Onset Recorded Date/T camron father Hypertension Unknown Cardiac disease Unknown Anemia Unknown mother Hypertension Unknown Advance Directives No Advanced Directives Records Found Advance Directive Response Recorded Date/ Time Advance Directives No April 06, 2015 1:00pm Living Will No April 06 16 1:00pm Power of Poker In No April 06, 2015 1:00pm Advance Directive Response Recorded Date/ Time Advance Directives No April 06, 2015 1:00pm Chief Complaint Chief Complaint Description Start Date left knee pain Preliminary chief co mplaint data, not yet signed by the author as of Instructions Instruction Description Start Date CompletedPatient advised to follow-up with Primary Care Physician for BMI management. Assessments There may be information available, but it has not been provided by the sender. Review of System There may be information available, but it has not been provided by the sender. History of Present Illness There may be information available, but it has not been provided by the sender. Chief Complaint and Reason for Visit Chief Complaint SCREENING Chief Complaint INT LABS Chief Complaint Admit Date INT LABS July 22, 2024 7:46am Chief Complaint Admit Date INT LABS July 22, 2024 7:46am 1 YEAR LABS PRIOR July 29, 2024 2:58p m Reason for Visit Admit Date History of colon cancer July 29, 2024 2 :58pm Chief Complaint Admit Date INT LABS July 22, 2024 7:46am 1 YEAR LABS PRIOR July 29, 2024 2:58p m HYPEREOMNIA W/ SNORING & HTN; STOPBANG October 01, 2024 9:00am Additional Source Comments (unrecognized sect ion and content) No Status Records FoundNo Status Records Found INFORMATION SOURCE (unrecogn ized section and content) DATE CREATED AUTHOR 12/25/2019 [employer] ([place]) DATE CREATED AUTHOR AUTHOR'S ORGANIZ ATION 10/21/2024 [facility] Reason for Visit (unrecogniz ed section and content) Reason For Visit Description Workers Comp - Consult Preliminary reason f or visit data, not yet signed by the author as of left knee pain Goals (unrecognized section and content) Goals may be documented in a n alternate sectionGoals may be documented in an alternate sectionGoals may be documented in an alternate sectionGoals may be documented in an alternate sectionGoals may be documented in an alternate section Care Teams (unrecognized sec tion and content) Team Status: Active Member Role Status Dates Dr. Tung Tristan , DO Family Provider Active Dr. Tung Tristan , DO Primary Care Provider Active Team Status: Inactive Member Role Status Dates Dr. Tung Tristan , Primary Care Prov ider, Attending Provider, Referring Provider Active Dr. Mayank Martinez MD Other Provider Active Team Status: Active Member Role Status Dates Dr. Tung Tristan , DO Primary Care Provider Active Team Status: Inactive Member Role Status Dates Dr. Tung Tristan DO Primary Care Provider Active Start: July 22, 2024 End: July 22, 2024 Dr. Tung Tristan DO Attending Provider Active Start: July 22, 2024 End: July 22, 2024 Dr. Tung Tristan DO Referring Provider Active Start: July 22, 2024 End: July 22, 2024 Dr. Mayank Mratinez MD Other Provider Active Start : July 22, 2024 End: July 22, 2024 Team Status: Inactive Member Role Status Dates Dr. Tung Tristan DO Primary Care Provider Active Start: July 29, 2024 End: July 29, 2024 Dr. Tung Tristan DO Referring Provider Active Start: July 29, 2024 End: July 29, 2024 Dr. Mayank Martinez MD Attending Provider Active S tart: July 29, 2024 End: July 29, 2024 Team Status: Active Member Role/Relationship Status Dates Dr. Tung Tristan DO Primary Care Provider Active Team Status: Inactive Member Role/Relationship Status Dates Dr. Tung Tristan DO Primary Care Provider Active Start: July 22, 2024 End: July 22, 2024 Dr. Tung Tristan DO Attending Provider Active Start: July 22, 2024 End: July 22, 2024 Dr. Tung Tristan DO Referring Provider Active Start: July 22, 2024 End: July 22, 2024 Dr. Mayank Martinez MD Other Provider Active Start : July 22, 2024 End: July 22, 2024 Team Status: Inactive Member Role/Relationship Status Dates Dr. Tung Tristan DO Primary Care Provider Active Start: July 29, 2024 End: July 29, 2024 Dr. Tung Tristan DO Referring Provider Active Start: July 29, 2024 End: July 29, 2024 Dr. Mayank Martinez MD Attending Provider Active S tart: July 29, 2024 End: July 29, 2024 Team Status: Inactive Member Role/Relationship Status Dates Dr. Tung Tristan DO Primary Care Provider Active Start: October 01, 2024 End: October 01, 2024 Dr. Tung Tristan DO Attending Provider Active Start: October 01, 2024 End: October 01, 2024 Dr. Tung Tristan DO Referring Provider Active Start: October 01, 2024 End: October 01, 2024 FOR RECORDS PERTAINING TO PATIENTS WHO ARE OR HAVE BEEN ENROLLED IN A CHEMICAL DEPENDENCY/SUBSTANCEABUSE PROGRAM, SOME INFORMATION MAY BE OMITTED. This clinical summary was aggregated from multiple sources. Caution should be exercised in using it in the provision of clinical care. This summary normalizes information from multiple sources, and as a consequence, information in this document may materially change the coding, format and clinical context of patient data. In addition, data may be omitted in some cases. CLINICAL DECISIONS SHOULD BE BASED ON THE PRIMARY CLINICAL RECORDS. [facility] [employer] [facility]. provides no warranty or guarantee of the accuracy or completeness of information in this document.
== END | disposition home or self-care (01) ==
LOC: SL 11:49
PROVIDERS: PCP Family Medicine; Referring Provider Family Medicine; Visit Provider Family Medicine
DX: Z46.89 Encounter for fitting and adjustment of other specified devices (principal)

== ENCOUNTER → 2025-01-07 | Outpatient (CLI) | payer OTHER, SELFPAY | END | disposition home or self-care (01) | LOC: SL 11:51 | PROVIDERS: PCP Family Medicine; Referring Provider Family Medicine; Visit Provider Family Medicine | DX: G47.33 Obstructive sleep apnea (adult) (pediatric) (principal) | CPT/HCPCS: 98960; G0463 ==